=== PATIENT | female | born 1930 | race Hispanic/Latino ===

== ENCOUNTER 2019-11-07 17:14 | Inpatient (IN) | payer MEDICARE ==
[~2019-11-07] VITALS: Ht 147.3 cm; Wt 75.2 kg
[~2019-11-07 17:14] MED LIST: ETOMIDATE 2 MG/ML 10 ML VIAL IVP ONE
[2019-11-07 17:58] LABS: APPEARANCE,URINE Clear (CLEAR); BILIRUBIN,URINE Negative (NEGATIVE); COLOR,URINE Yellow (YELLOW); GLUCOSE, URINE (UA) Negative (NEGATIVE); KETONES,URINE Negative (NEGATIVE); LEUKOCYTE ESTERASE ,URINE Small (NEGATIVE); NITRATE,URINE Negative (NEGATIVE); OCCULT BLOOD,URINE Negative (NEGATIVE); PROTEIN,URINE POS 1+ mg/dL (NEGATIVE)
[2019-11-07 18:15] LABS: BASOPHILS % (AUTO) 0.3 % (0.0-5.0); EOSINOPHILS % (AUTO) 0.3 % (0.0-8.0); HEMATOCRIT 27.1 % (36-48); LYMPHOCYTES % (AUTO) 3.4 % (21.0-51.0); MEAN CORPUSCULAR HEMOGLOBIN 24.9 pg (27.0-33.0); MEAN CORPUSCULAR HGB CONC 29.9 g/dL (32.0-36.0); MEAN CORPUSCULAR VOLUME 83.4 fL (79-99); MONOCYTES % (AUTO) 4.9 % (3.0-13.0); NEUTROPHILS % (AUTO) 89.6 % (40.0-77.0); PLATELET COUNT (AUTO) 493 K/uL (130-400); RED BLOOD CELL COUNT(AUTO) 3.25 MIL/uL (4.00-5.50); RED CELL DISTRIBUTION WIDTH 15.4 % (11.0-15.5); WHITE BLOOD COUNT (AUTO) 27.7 K/uL (4.8-10.8)
[2019-11-07 18:30] LABS: CARBON DIOXIDE 29 mmol/L (21-32); CHLORIDE 100 mmol/L (101-111); GLOMERULAR FILTR. RATE CALC 56 mL/min (>60); GLUCOSE,RANDOM 181 mg/dL (70-105); POTASSIUM 4.3 mmol/L (3.5-5.1); SODIUM SERUM 137 mmol/L (136-145); UREA NITROGEN, BLOOD 14 mg/dL (7-18)
[2019-11-07] MEDS ORDERED: ZOSYN 3.375GM+NS 50ML 50 ML IV ONE (18:30)
[2019-11-07 18:34] LABS: BACTERIA,URINE Moderate /HPF (None Seen); MUCUS,URINE Moderate LPF (None Seen); RBC,URINE 0-1 /HPF (0-1); SQUAMOUS EPITHELIAL CELL,UR 0-2 /HPF (0-2)
[2019-11-07 18:41] LABS: ALANINE AMINOTRANSFERASE 15 U/L (12-78); ALBUMIN 2.6 g/dL (3.5-5.0); ASPARTATE AMINOTRANSFERASE 18 U/L (10-37); BILIRUBIN,TOTAL 0.2 mg/dL (0.2-1.0); CREATINE KINASE, TOTAL 47 U/L (21-232); MYOGLOBIN 35 ng/mL (10-92); TOTAL PROTEIN, SERUM 7.6 g/dL (6.0-8.3); TROPONIN I < 0.04 ng/mL (0.00-0.06)
[2019-11-07 18:48] LABS: INR 1.05 (0.85-1.15); PARTIAL THROMBOPLASTIN TIME 25.7 SEC (26.3-35.5)
[2019-11-07] MEDS ORDERED: LACTULOSE 20 GM/30 ML UDCUP PO PRN (20:00)
[2019-11-07] MEDS: CEFTRIAXONE SODIUM 1 GM IV SCH (20:00)
[2019-11-07] MEDS ORDERED: ONDANSETRON HCL 4 MG/2 ML VIAL IV PRN (20:00)
[2019-11-07] MEDS ORDERED: HYDRALAZINE HCL 20 MG/ML VIAL IV PRN (20:00)
[2019-11-07] MEDS ORDERED: FAMOTIDINE 20MG TAB 20 MG TAB ONE (20:58)
[2019-11-07] MEDS ORDERED: CEFTRIAXONE SODIUM 1 GM ONE (20:58)
[2019-11-07] MEDS ORDERED: SODIUM CHLORIDE 0.9% 50 ML IV ONE (20:59)
--- NOTE | 2019-11-07 22:30 | NUR ---
RT AWARE OF ENDING RESPIRATORY CX COLLECTION PT FAILED TO EXPECTORATE INDUCTION IS NEEDED
[2019-11-07 22:50] VITALS: BP 150/74
--- NOTE | 2019-11-07 22:58 | NUR ---
PT STATES [place] HER [place]ENT [place] [facility] [place] [facility] TOLD NOT TO TAKE ANY OF HER HOME MEDICATIONS AND SINCE, SHE HAS NOT TAKEN ANY PIECE DYE WORKER AJ AWARE
[2019-11-07] MEDS: AZITHROMYCIN 500MG+NS 250ML 250 ML IV SCH (23:00)
[2019-11-07] MEDS ORDERED: SODIUM CHLORIDE 3% FOR INHALATION 4 ML/AMP VIAL.NEB IH ONE (23:03)
[2019-11-07] MEDS: IPRATROPIUM/ALBUTEROL SULFATE 3 ML SOLUTION IH SCH (23:43)
[2019-11-08] VITALS: BP 147/57
[2019-11-08] MEDS: AZITHROMYCIN 500MG+NS 250ML 250 ML IV SCH (00:30)
[2019-11-08] MEDS ORDERED: SODIUM CHLORIDE 3% FOR INHALATION 4 ML/AMP VIAL.NEB IH ONE (03:03)
[2019-11-08 04:00] VITALS: BP 145/76
[2019-11-08 05:30] LABS: BASOPHILS % (AUTO) 0.3 % (0.0-5.0); EOSINOPHILS % (AUTO) 0.9 % (0.0-8.0); HEMATOCRIT 23.3 % (36-48); LYMPHOCYTES % (AUTO) 4.1 % (21.0-51.0); MEAN CORPUSCULAR HEMOGLOBIN 25.7 pg (27.0-33.0); MEAN CORPUSCULAR HGB CONC 30.9 g/dL (32.0-36.0); MEAN CORPUSCULAR VOLUME 83.2 fL (79-99); MONOCYTES % (AUTO) 6.7 % (3.0-13.0); NEUTROPHILS % (AUTO) 86.6 % (40.0-77.0); PLATELET COUNT (AUTO) 473 K/uL (130-400); RED CELL DISTRIBUTION WIDTH 15.7 % (11.0-15.5); WHITE BLOOD COUNT (AUTO) 20.8 K/uL (4.8-10.8)
[2019-11-08 05:45] LABS: POTASSIUM 3.9 mmol/L (3.5-5.1)
[2019-11-08] MEDS: IPRATROPIUM/ALBUTEROL SULFATE 3 ML SOLUTION IH SCH ×4 (06:33→23:16)
[2019-11-08 07:23] VITALS: BP 124/65
[2019-11-08] MEDS ORDERED: VANCOMYCIN 1GM+NS 250ML 250 ML IV SCH (08:45)
[2019-11-08] MEDS ORDERED: VANCOMYCIN PROTOCOL PER PHARMACY IV PRN (08:45)
[2019-11-08] MEDS: FAMOTIDINE 20MG TAB 20 MG TAB PO SCH (08:45)
[2019-11-08] MEDS: VANCOMYCIN 1GM+NS 250ML 250 ML IV SCH (08:52)
[2019-11-08] MEDS: ENOXAPARIN SODIUM 40 MG/0.4 ML SYRINGE SQ SCH (08:52)
[2019-11-08 10:47] VITALS: BP 141/63
[2019-11-08 16:02] VITALS: BP 136/60
--- NOTE | 2019-11-08 17:27 | NUR ---
INITIAL SW met with patient. Patient states she lives alone. Emergency contacts are sons: Gerg Jamison, and Robbie Jamison, . No home services or DME. Patient is independent in completing ADL's and drives. PCP is Dr. Aamrilys Wu. Pharmacy is [facility] located in [place]. DCP is home. Addendum: 11/08/19 at 1729 by ALONDRA MANLEY SS Amended: Links added.
[2019-11-08] MEDS: ACETAMINOPHEN 325 MG TAB PO PRN (17:33)
[2019-11-08 20:00] VITALS: BP 126/59
--- NOTE | 2019-11-08 21:30 | NUR ---
PER ARCHIVIST ECONOMIC HISTORY, ONLY GIVE 1 UNIT OF PRBC AND RECHECK CBC IN AM
[2019-11-08] MEDS: CEFTRIAXONE SODIUM 1 GM IV SCH (21:43)
[2019-11-08] MEDS ORDERED: ALPRAZOLAM 0.25 MG TABLET ONE (21:45)
[2019-11-08] MEDS: ALPRAZOLAM 0.25 MG TABLET PO PRN (21:46)
[2019-11-09] VITALS: BP 153/72
[2019-11-09] MEDS: ACETAMINOPHEN 325 MG TAB PO PRN ×2 (03:19→12:15)
[2019-11-09 04:00] VITALS: BP 139/75
[2019-11-09 06:08] LABS: BASOPHILS % (AUTO) 0.4 % (0.0-5.0); LYMPHOCYTES % (AUTO) 3.1 % (21.0-51.0); MEAN CORPUSCULAR HEMOGLOBIN 25.7 pg (27.0-33.0); MEAN CORPUSCULAR HGB CONC 30.7 g/dL (32.0-36.0); MEAN CORPUSCULAR VOLUME 83.8 fL (79-99); MONOCYTES % (AUTO) 5.8 % (3.0-13.0); NEUTROPHILS % (AUTO) 87.3 % (40.0-77.0); PLATELET COUNT (AUTO) 473 K/uL (130-400); RED BLOOD CELL COUNT(AUTO) 3.34 MIL/uL (4.00-5.50); RED CELL DISTRIBUTION WIDTH 15.4 % (11.0-15.5); WHITE BLOOD COUNT (AUTO) 25.6 K/uL (4.8-10.8)
--- NOTE | 2019-11-09 06:26 | NUR ---
CALLED SON ORION SINGH. TO [phone] SAME NUMBER HE HAD ASKED TO BE CALLED TO STATE HEMOGLOBIN AND HEMATOCRIT RESULTS BUT HE DID NOT ANSWER THE PHONE
[2019-11-09 06:36] LABS: CREATININE 0.8 mg/dL (0.5-1.5); POTASSIUM 3.4 mmol/L (3.5-5.1)
[2019-11-09] MEDS: IPRATROPIUM/ALBUTEROL SULFATE 3 ML SOLUTION IH SCH ×4 (07:17→23:06)
[2019-11-09 08:08] VITALS: BP 143/73
[2019-11-09] MEDS: FAMOTIDINE 20MG TAB 20 MG TAB PO SCH (08:21)
[2019-11-09] MEDS: ALPRAZOLAM 0.25 MG TABLET PO PRN ×2 (08:21→18:53)
[2019-11-09] MEDS: ENOXAPARIN SODIUM 40 MG/0.4 ML SYRINGE SQ SCH (08:22)
[2019-11-09] MEDS: VANCOMYCIN 1GM+NS 250ML 250 ML IV SCH (08:22)
[2019-11-09 12:22] VITALS: BP 140/69
[2019-11-09] MEDS: BISMUTH SUBSALICYLATE 525 MG/15 ML ML PO PRN (14:34)
[2019-11-09 16:05] VITALS: BP 133/72
[2019-11-09] MEDS ORDERED: KETOROLAC TROMETHAMINE 15MG/ML IM PRN (17:15)
[2019-11-09] MEDS: KETOROLAC TROMETHAMINE 15MG/ML IV PRN (17:48)
[2019-11-09 19:40] VITALS: BP 129/75
[2019-11-09] MEDS ORDERED: POTASSIUM CHLORIDE 20MEQ/100ML 100 ML IV PRN (20:45)
[2019-11-09] MEDS ORDERED: LIDOCAINE HCL-MPF 1% 2ML VIAL IV PRN (20:45)
[2019-11-09] MEDS ORDERED: POTASSIUM CHLORIDE 10% ELIXIR 20 MEQ/15 ML UDCUP PO PRN (20:45)
[2019-11-09] MEDS: AZITHROMYCIN 500MG+NS 250ML 250 ML IV SCH (22:19)
[2019-11-09] MEDS: CEFTRIAXONE SODIUM 1 GM IV SCH (22:19)
[2019-11-10] VITALS (8 sets, daily range): BP systolic 103–136; BP diastolic 57–87
[2019-11-10] MEDS: ALPRAZOLAM 0.25 MG TABLET PO PRN (02:15)
--- NOTE | 2019-11-10 02:25 | NUR ---
EPISODE OF ANXIETY PT PRESSED CALL LIGHT AND FOUND SITTING AT THE EDGE OF THE BED HYPERVENTILATING. PT STATES, " I JUST WOKE UP AND I HAVE ANXIETY. I FEEL THE SAME I DID YESTERDAY." VS DONE AT THIS TIME. 180/87, O2 SAT 88%, HR 130. ANTI ANXIETY PRN MEDICATION GIVEN AT THIS TIME. PT EDUCATED TO TAKE DEEP BREATHS THROUGH NARES AND EXHALE.
--- NOTE | 2019-11-10 02:35 | NUR ---
ANXIETY REEVALUATED VS AT THIS TIME: BP 149/69, HR 115, O2 SAT 96%. PT STATES, " I FEEL A LITTLE BETTER, BUT I STILL FEEL ANXIETY." PT IS NOW ABLE TO TOLERATE LAYING IN BED WITH HOB AT 90 DEGREE ANGLE.
[2019-11-10] MEDS ORDERED: DIPHENHYDRAMINE HCL 25 MG CAPSULE ONE (03:21)
[2019-11-10] MEDS ORDERED: DIPHENHYDRAMINE HCL 25 MG CAPSULE PO ONE (03:30)
[2019-11-10] MEDS ORDERED: FUROSEMIDE 10 MG/ML 2ML VIAL ONE (03:41)
[2019-11-10] MEDS ORDERED: FUROSEMIDE 10 MG/ML 2ML VIAL IV ONE (03:45)
[2019-11-10 03:56] LABS: ABG HCO3 21.5 mmol/L (21.0-28.0); ABG PCO2 33 mmHg (32-45)
[2019-11-10 04:16] LABS: BASOPHILS % (AUTO) 0.4 % (0.0-5.0); EOSINOPHILS % (AUTO) 0.6 % (0.0-8.0); HEMATOCRIT 32.4 % (36-48); LYMPHOCYTES % (AUTO) 2.9 % (21.0-51.0); MEAN CORPUSCULAR HEMOGLOBIN 25.8 pg (27.0-33.0); MEAN CORPUSCULAR HGB CONC 30.9 g/dL (32.0-36.0); MEAN CORPUSCULAR VOLUME 83.7 fL (79-99); MONOCYTES % (AUTO) 4.7 % (3.0-13.0); NEUTROPHILS % (AUTO) 88.6 % (40.0-77.0); NUCLEATED RED BLOOD CELLS 0.1 % (0.0-0.19); PLATELET COUNT (AUTO) 650 K/uL (130-400); RED BLOOD CELL COUNT(AUTO) 3.87 MIL/uL (4.00-5.50); RED CELL DISTRIBUTION WIDTH 15.9 % (11.0-15.5)
[2019-11-10 04:18] LABS: ALBUMIN 2.1 g/dL (3.5-5.0); BILIRUBIN,TOTAL 0.4 mg/dL (0.2-1.0); CREATININE 0.9 mg/dL (0.5-1.5); POTASSIUM 3.7 mmol/L (3.5-5.1)
[2019-11-10 04:21] LABS: WHITE BLOOD COUNT (AUTO) 37.1 K/uL (4.8-10.8)
[2019-11-10 04:50] LABS: BAND NEUTROPHILS % (MANUAL) 2 % (0-2); LYMPHOCYTES % (MANUAL) 3 % (22-44); MONOCYTES % (MANUAL) 2 % (2-9); SEGMENTED NEUTROPHILS % 93 % (40-70)
[2019-11-10 04:51] LABS: MAN.DIFF COMMENT-IMPRESSION MANUAL DIFFERENTIAL
[2019-11-10 04:52] LABS: PLATELET MORPHOLOGY COMMENT MARKED INCREASE
[2019-11-10] MEDS ORDERED: IOHEXOL-350 75 ML VIAL IV ONE (05:13)
[2019-11-10] MEDS: IPRATROPIUM/ALBUTEROL SULFATE 3 ML SOLUTION IH SCH ×4 (06:32→23:31)
--- NOTE | 2019-11-10 08:50 | NUR ---
Notified Dr. Andres of consultation.
[2019-11-10] MEDS: ENOXAPARIN SODIUM 40 MG/0.4 ML SYRINGE SQ SCH (09:00)
[2019-11-10] MEDS: FAMOTIDINE 20MG TAB 20 MG TAB PO SCH (09:00)
[2019-11-10] MEDS: VANCOMYCIN 1GM+NS 250ML 250 ML IV SCH (10:02)
[2019-11-10 10:16] LABS: INR 1.06 (0.85-1.15); PROTHROMBIN TIME 11.1 SEC (9.6-11.6)
[2019-11-10] MEDS ORDERED: LIDOCAINE HCL MPF 1% 5ML VIAL ONE (11:04)
[2019-11-10] MEDS ORDERED: LIDOCAINE HCL 1% 20 ML VIAL INJ SCH (11:15)
--- NOTE | 2019-11-10 11:15 | NUR ---
1115 R lung thoracentesis performed at bedside by Dr. Andres; consent obtained, timeout in room, pt. tolerated procedure well. 1 L of brown, clear fluid obtained from thora- specimens of fluid sent for labs as ordered.
[2019-11-10] MEDS ORDERED: MEROPENEM 1 GM VIAL IVP SCH (12:30)
[2019-11-10 12:52] LABS: APPEARANCE BODY FLUID CLOUDY (CLEAR); SPECIMENTYPE,BODY FLUID PLEURAL
[2019-11-10 12:53] LABS: COLOR,BODY FLUID LT YELLOW (LT YELLOW); TOTAL VOLUME,BODY FLUID 25 mL
[2019-11-10 12:59] LABS: BODY FLUID RBC 2800 /cu. mm.; BODY FLUID WBC 4565 /cu. mm.
[2019-11-10 13:01] LABS: BF EOSINOPHIL 1 %; BF LYMPHOCYTE 4 %; BF MESOTHELIAL 8 %; BF MONOCYTE 2 %
--- NOTE | 2019-11-10 14:15 | NUR ---
Report endorsed to CHANO Madera from [facility]; transported pt. via bed to room 229. Pt. states she feels better after thoracentesis; 02 sat on RA 96%, no c/o pain, resp even and unlabored at rest.
[2019-11-11] MEDS: MEROPENEM 1 GM VIAL IVP SCH ×3 (02:15→22:12)
[2019-11-11 04:01] VITALS: BP 107/62
[2019-11-11 05:17] LABS: BASOPHILS % (AUTO) 0.3 % (0.0-5.0); EOSINOPHILS % (AUTO) 0.6 % (0.0-8.0); HEMATOCRIT 28.1 % (36-48); LYMPHOCYTES % (AUTO) 2.8 % (21.0-51.0); MEAN CORPUSCULAR HEMOGLOBIN 26.6 pg (27.0-33.0); MEAN CORPUSCULAR HGB CONC 31.7 g/dL (32.0-36.0); MEAN CORPUSCULAR VOLUME 83.9 fL (79-99); MONOCYTES % (AUTO) 5.7 % (3.0-13.0); PLATELET COUNT (AUTO) 499 K/uL (130-400); RED BLOOD CELL COUNT(AUTO) 3.35 MIL/uL (4.00-5.50); RED CELL DISTRIBUTION WIDTH 16.3 % (11.0-15.5); WHITE BLOOD COUNT (AUTO) 27.1 K/uL (4.8-10.8)
[2019-11-11 05:37] LABS: ALBUMIN 1.7 g/dL (3.5-5.0); BILIRUBIN,TOTAL 0.3 mg/dL (0.2-1.0); POTASSIUM 3.4 mmol/L (3.5-5.1); TOTAL PROTEIN, SERUM 5.9 g/dL (6.0-8.3)
[2019-11-11] MEDS: IPRATROPIUM/ALBUTEROL SULFATE 3 ML SOLUTION IH SCH ×4 (07:08→23:21)
[2019-11-11 07:30] VITALS: BP 107/61
[2019-11-11] MEDS: VANCOMYCIN 1GM+NS 250ML 250 ML IV SCH (09:13)
[2019-11-11] MEDS: ENOXAPARIN SODIUM 40 MG/0.4 ML SYRINGE SQ SCH (09:14)
[2019-11-11] MEDS: FAMOTIDINE 20MG TAB 20 MG TAB PO SCH (09:14)
[2019-11-11] MEDS: POTASSIUM CHLORIDE 20 MEQ ERTAB PO PRN (09:15)
[2019-11-11] MEDS: ALPRAZOLAM 0.25 MG TABLET PO PRN ×2 (11:23→22:16)
[2019-11-11 11:30] VITALS: BP 105/71
[2019-11-11 15:30] VITALS: BP 123/72
[2019-11-11 20:11] VITALS: BP 142/81
[2019-11-12 00:25] VITALS: BP 137/68
[2019-11-12 04:53] LABS: HEMATOCRIT 29.2 % (36-48); MEAN CORPUSCULAR HEMOGLOBIN 26.1 pg (27.0-33.0); MEAN CORPUSCULAR HGB CONC 31.2 g/dL (32.0-36.0); MEAN CORPUSCULAR VOLUME 83.7 fL (79-99); PLATELET COUNT (AUTO) 508 K/uL (130-400); RED BLOOD CELL COUNT(AUTO) 3.49 MIL/uL (4.00-5.50); WHITE BLOOD COUNT (AUTO) 25.4 K/uL (4.8-10.8)
[2019-11-12 05:11] LABS: ALBUMIN 1.6 g/dL (3.5-5.0); BILIRUBIN,TOTAL 0.4 mg/dL (0.2-1.0); CREATININE 0.9 mg/dL (0.5-1.5); POTASSIUM 3.7 mmol/L (3.5-5.1); TOTAL PROTEIN, SERUM 5.9 g/dL (6.0-8.3)
[2019-11-12 05:20] VITALS: BP 126/70
[2019-11-12 06:31] LABS: BAND NEUTROPHILS % (MANUAL) 4 % (0-2); BASOPHILS % (MANUAL) 5 % (0-2); LYMPHOCYTES % (MANUAL) 11 % (22-44); MAN.DIFF COMMENT-IMPRESSION MANUAL DIFFERENTIAL; MONOCYTES % (MANUAL) 4 % (2-9); PLATELET MORPHOLOGY COMMENT INCREASED; SEGMENTED NEUTROPHILS % 76 % (40-70)
[2019-11-12] MEDS: IPRATROPIUM/ALBUTEROL SULFATE 3 ML SOLUTION IH SCH ×4 (06:58→23:14)
[2019-11-12] MEDS: MEROPENEM 1 GM VIAL IVP SCH ×2 (07:37→21:42)
[2019-11-12] MEDS: VANCOMYCIN 1GM+NS 250ML 250 ML IV SCH (07:38)
[2019-11-12] MEDS: FAMOTIDINE 20MG TAB 20 MG TAB PO SCH (07:38)
[2019-11-12] MEDS: ENOXAPARIN SODIUM 40 MG/0.4 ML SYRINGE SQ SCH (07:38)
--- NOTE | 2019-11-12 08:00 | NUR ---
ASSESSMENT AAOX3 DENIES CP DENIES SOB DENIES NV NO COMPLAINTS, SITTING UP IN BED, AM MEDS GIVEN. EATING BREAKFAST, CALL LIGHT WITHIN REACH.
[2019-11-12 08:12] VITALS: BP 125/61
--- NOTE | 2019-11-12 09:35 | NUR ---
HR VIA TELE PARTRIDGE FARMER AFIB 120S PATIENT STATES SHE FEELS HER HEART RACING SLIGHTLY, DENIES CHEST PAIN. BREATHING PATTERN IS EVEN AND UNLABORED. 12 LEAD EKG DONE, SHOWED SINUS TACHYCARDIA 110S. NOTIFIED DR CASTRO, ORDERS RECEIVED FOR METOPROLOL PO AND IV, CARRIED OUT. CONTINUING TO MONITOR.
[2019-11-12] MEDS ORDERED: METOPROLOL TARTRATE 25 MG TAB PO SCH (09:45)
[2019-11-12] MEDS ORDERED: METOPROLOL TARTRATE 1 MG/ML 5ML VIAL IV SCH (09:45)
--- NOTE | 2019-11-12 09:45 | NUR ---
HR VIA TELE SR 90S PT AAOX3 DENIES CP DENIES SOB.
--- NOTE | 2019-11-12 11:19 | NUR ---
GYNE CONSULT RE: SUSPECT PELVIC MASS, PLACED WITH DR SHAFER OFFICE, SPOKE WITH JENNIFER.
[2019-11-12] MEDS: ALPRAZOLAM 0.25 MG TABLET PO PRN ×2 (11:26→16:29)
[2019-11-12 12:07] VITALS: BP 117/63
[2019-11-12] MEDS: METOPROLOL TARTRATE 25 MG TAB PO SCH ×2 (13:07→21:42)
[2019-11-12] MEDS ORDERED: VANCOMYCIN PROTOCOL PER PHARMACY IV SCH (13:30)
[2019-11-12] MEDS ORDERED: COMPOUND IV REFRIGERATED 1 EACH IVSOLN MISC PRN (13:30)
--- NOTE | 2019-11-12 14:22 | NUR ---
DR Rosalino SHAFER CALLED BACK ORDERS RECEIVED, STATES HE WILL SEE PATIENT THIS EVENING
[2019-11-12] MEDS: VANCOMYCIN 1.25 GM in SODIUM CHLORIDE 0.9% 250 ML IV SCH (14:26)
--- NOTE | 2019-11-12 14:50 | NUR ---
DR POMPA ROUNDED ORDERS RECEIVED, MERREM RESTARTED.
[2019-11-12 19:42] VITALS: BP 128/60
--- NOTE | 2019-11-12 20:00 | NUR ---
Pt Sat 91% on 4LNC. Placed pt on bipap 10/,14,40%. Pt only tolerated 25 min on bipap. Placed pt back on 4LNC. Addendum: 11/12/19 at 2005 by DEMARCUS LOREDO RT Amended: Links added.
[2019-11-12] MEDS ORDERED: MEROPENEM 1 GM VIAL IVP SCH (21:00)
[2019-11-12] MEDS ORDERED: DIPHENHYDRAMINE HCL 25 MG CAPSULE ONE (21:56)
--- NOTE | 2019-11-13 | NUR ---
PT ANXIOUS AT TIMES. MINIMALLY CONFUSED. SOB EPISODES NOTED, NASAL CANNULA INCREASED TO 4LPM.
[2019-11-13 00:13] VITALS: BP 127/69
[2019-11-13 04:23] LABS: BASOPHILS % (AUTO) 0.3 % (0.0-5.0); EOSINOPHILS % (AUTO) 0.5 % (0.0-8.0); HEMATOCRIT 31.6 % (36-48); LYMPHOCYTES % (AUTO) 2.5 % (21.0-51.0); MEAN CORPUSCULAR HEMOGLOBIN 25.7 pg (27.0-33.0); MEAN CORPUSCULAR HGB CONC 30.4 g/dL (32.0-36.0); MEAN CORPUSCULAR VOLUME 84.7 fL (79-99); MONOCYTES % (AUTO) 5.7 % (3.0-13.0); NEUTROPHILS % (AUTO) 89.8 % (40.0-77.0); PLATELET COUNT (AUTO) 501 K/uL (130-400); RED BLOOD CELL COUNT(AUTO) 3.73 MIL/uL (4.00-5.50); RED CELL DISTRIBUTION WIDTH 17.2 % (11.0-15.5)
[2019-11-13 04:49] VITALS: BP 102/82
[2019-11-13 04:52] LABS: CREATININE 0.9 mg/dL (0.5-1.5); PHOSPHORUS 2.7 mg/dL (2.5-4.9)
[2019-11-13 04:53] LABS: BAND NEUTROPHILS % (MANUAL) 4 % (0-2); EOSINOPHILS % (MANUAL) 1 % (1-6); LYMPHOCYTES % (MANUAL) 1 % (22-44); MAN.DIFF COMMENT-IMPRESSION MANUAL DIFFERENTIAL; MONOCYTES % (MANUAL) 5 % (2-9); SEGMENTED NEUTROPHILS % 89 % (40-70)
--- NOTE | 2019-11-13 05:10 | NUR ---
WBC 30. NOTIFIED HOSPITALIST FIELD SERVICES ANALYST. KYUNG KRAMER. NO NEW ORDERS. ID IN CASE.
[2019-11-13] MEDS: IPRATROPIUM/ALBUTEROL SULFATE 3 ML SOLUTION IH SCH ×4 (06:38→23:30)
[2019-11-13 07:53] VITALS: BP 118/65
[2019-11-13] MEDS: MEROPENEM 1 GM VIAL IVP SCH ×2 (08:26→22:04)
[2019-11-13] MEDS: FAMOTIDINE 20MG TAB 20 MG TAB PO SCH (08:26)
[2019-11-13] MEDS: METOPROLOL TARTRATE 25 MG TAB PO SCH ×3 (08:26→22:03)
--- NOTE | 2019-11-13 08:45 | NUR ---
ASSESSMENT PT IS AAOX3 DENIES CP DENIES SOB DENIES NV AT THIS TIME, SITTING UPRIGHT IN BED, BREATHING PATTERN IS EVEN AND UNLABORED. PENDING FAMILY TO COME TO DISCUSS WITH PATIENT REGARDING POSSIBLE CT CHEST LUNG BIOPSY. CALL LIGHT WITHIN REACH.
--- NOTE | 2019-11-13 09:00 | NUR ---
SPOKE WITH SON LUCIA REGARDING LUNG BIOPSY STATES HE WILL SPEAK WITH HIS OTHER BROTHER AND DECIDE ON WHETHER TO PROCEED OR NOT, STATES THEY MIGHT WANT TO WAIT TO DO BIOPSY ONCE MOTHER GETS STRONGER AND BLOOD COUNTS ARE BETTER.
[2019-11-13] MEDS ORDERED: DIATR MEGLU/DIATRIZOATE SODIUM 30 ML BOTTLE ONE (09:45)
[2019-11-13] MEDS: ENOXAPARIN SODIUM 40 MG/0.4 ML SYRINGE SQ SCH (09:48)
--- NOTE | 2019-11-13 10:00 | NUR ---
PREP FOR CT ABD PELVIS STARTED
[2019-11-13 11:27] VITALS: BP 113/66
--- NOTE | 2019-11-13 12:00 | NUR ---
UP TO CHAIR FAMILY AT BEDSIDE, PT DENIES CP DENIES SOB
[2019-11-13] MEDS ORDERED: IOHEXOL-350 75 ML VIAL IV ONE (14:20)
[2019-11-13] MEDS: VANCOMYCIN 1.25 GM in SODIUM CHLORIDE 0.9% 250 ML IV SCH (14:57)
--- NOTE | 2019-11-13 15:03 | NUR ---
MIP BRIAN met with patient's son, Greg Jamison regarding decision to have biopsy completed on patient. Greg informed BRIAN that his brother, Robbie Jamison, had spoke to MD about waiting to have biopsy completed until patient was more stable. As per Greg, his brother feels that patient is still too weak to have biopsy done. Greg also informed BRIAN that his brother, Robbie had also informed MD that he was asking his mother in law, who is a doctor at [facility] for some recommendations regarding plan of care for patient. BRIAN shared above information with patient's nurse, Lobito, who stated that MD had already spoken to family regarding same issue. BRIAN will continue to follow up with family as needed.
--- NOTE | 2019-11-13 15:31 | NUR ---
1514 placed BPCI Letter in patient's room. Patient was out for procedure at this moment.
[2019-11-13] MEDS: ALPRAZOLAM 0.25 MG TABLET PO PRN (15:46)
--- NOTE | 2019-11-13 15:49 | NUR ---
RETURNED TO ROOM AWAKE AND ALERT, STATES SHE IS ANXIOUS. PRN ATIVAN PO GIVEN.
--- NOTE | 2019-11-13 16:15 | NUR ---
SHORTNESS OF BREATH / ANXIETY PATIENT IS AAOX3 BUT TACHYPNIC RR 30, O2 SAT 80S, PLACED ON NONREBREATHER, DR MARIN ROUNDED AND ASSESSED PATIENT, ORDERS RECEIVED AND CARRIED OUT.
[2019-11-13 16:20] VITALS: BP 172/95
[2019-11-13] MEDS ORDERED: FUROSEMIDE 10 MG/ML 2ML VIAL ONE (16:20)
[2019-11-13 16:28] LABS: ABG BASE EXCESS -3.2 mmol/L (-2.0-3.0); ABG HCO3 24.4 mmol/L (21.0-28.0); ABG OXYGEN SATURATION 95.3 % (95.0-99.0); ABG PCO2 54 mmHg (32-45)
--- NOTE | 2019-11-13 16:40 | NUR ---
STATUS PT IS RESTING IN BED, BREATHING PATTERN EVEN AND UNLABORED, RR 20-22. O2 SAT 96%, APPEARS ASLEEP. NO VISIBLE SIGNS OF DISTRESS NOTED, SON AT BEDSIDE.
[2019-11-13] MEDS ORDERED: ALBUTEROL SULFATE 0.083% 2.5 MG/3 ML INH IH SCH (17:15)
--- NOTE | 2019-11-13 18:00 | NUR ---
STATUS PATIENT IS AAOX3, O2 SAT 98% CURRENTLY ON 4LPM NC. FAMILY MEMBERS AT BEDSIDE. HOB UP AT 35 DEGREES. CALL LIGHT WITHIN REACH.
[2019-11-13 20:25] VITALS: BP 101/54
[2019-11-14] VITALS (7 sets, daily range): BP systolic 111–163; BP diastolic 55–79
[2019-11-14] MEDS: IPRATROPIUM/ALBUTEROL SULFATE 3 ML SOLUTION IH SCH ×4 (06:37→23:28)
[2019-11-14] MEDS: FAMOTIDINE 20MG TAB 20 MG TAB PO SCH (09:44)
[2019-11-14] MEDS: METOPROLOL TARTRATE 25 MG TAB PO SCH ×3 (09:44→21:49)
[2019-11-14] MEDS: ENOXAPARIN SODIUM 40 MG/0.4 ML SYRINGE SQ SCH (09:48)
[2019-11-14] MEDS: MEROPENEM 1 GM VIAL IVP SCH ×2 (09:48→21:49)
--- NOTE | 2019-11-14 09:53 | NUR ---
DR. MARIN IN ROOM SPEAKING WITH PT. RE:PLAN OF CARE. QUESTIONS ANSWERED BY DR. MARIN.
[2019-11-14] MEDS: ALPRAZOLAM 0.25 MG TABLET PO PRN (11:26)
[2019-11-14] MEDS: FUROSEMIDE 10 MG/ML 2ML VIAL IV SCH ×2 (11:26→21:49)
[2019-11-14] MEDS: VANCOMYCIN 1.25 GM in SODIUM CHLORIDE 0.9% 250 ML IV SCH (13:39)
[2019-11-14] MEDS: KETOROLAC TROMETHAMINE 15MG/ML IV PRN ×2 (13:40→20:03)
--- NOTE | 2019-11-14 15:39 | NUR ---
RD NOTIFICATION DIET: REGULAR. PO INTAKE <25% AND HAS POOR APPETITE. PT IS REQUESTING NUTRITIONAL SUPPLEMENTS WITH LOW SUGAR. LABS REVIEWED (WBC 30, ALB 1.6, BNP 635, D-DIMER 4277). MEDS REVIEWED. SKIN IS INTACT. PT STATED FOOD IS TOO SPICY, SHE CAN NOT EAT COMFORTABLY. RD RECOMMENDS TO ADD GI SOFT/BLAND ADD GLUCERNA BID ADD 30ML PROMOD BID TO DIET ORDER MONITOR LABS, BM, AND TOLERANCE TO DIET Addendum: 11/14/19 at [address] Amended: Links added.
[2019-11-14] MEDS: ACETAMINOPHEN 325 MG TAB PO PRN (16:16)
--- NOTE | 2019-11-14 18:38 | NUR ---
DR. HERNANDEZ, CRAFT DEMONSTRATOR, CALLED BY DISK OPERATOR. DR. CASTRO SPEAKING WITH A NURSE VIA TELEPHONE FOR DR. HERNANDEZ, "DR. HERNNADEZ PERFORMING A PROCEDURE RIGHT NOW." CALL BACK NUMBER PROVIDED FOR DR. HERNANDEZ BY DR. CASTRO TO DISCUSS CONSULT.
[2019-11-14] MEDS: BISMUTH SUBSALICYLATE 525 MG/15 ML ML PO PRN (18:49)
[2019-11-15] VITALS (11 sets, daily range): BP systolic 97–131; BP diastolic 57–73
[2019-11-15 04:15] LABS: BASOPHILS % (AUTO) 0.3 % (0.0-5.0); EOSINOPHILS % (AUTO) 0.7 % (0.0-8.0); HEMATOCRIT 32.8 % (36-48); MEAN CORPUSCULAR HEMOGLOBIN 25.5 pg (27.0-33.0); MEAN CORPUSCULAR HGB CONC 29.6 g/dL (32.0-36.0); MEAN CORPUSCULAR VOLUME 86.1 fL (79-99); MONOCYTES % (AUTO) 4.7 % (3.0-13.0); NEUTROPHILS % (AUTO) 89.7 % (40.0-77.0); PLATELET COUNT (AUTO) 558 K/uL (130-400); RED BLOOD CELL COUNT(AUTO) 3.81 MIL/uL (4.00-5.50)
[2019-11-15 04:18] LABS: WHITE BLOOD COUNT (AUTO) 38.4 K/uL (4.8-10.8)
[2019-11-15 04:27] LABS: CREATININE 0.9 mg/dL (0.5-1.5); POTASSIUM 4.3 mmol/L (3.5-5.1)
[2019-11-15 04:32] LABS: INR 1.02 (0.85-1.15); PARTIAL THROMBOPLASTIN TIME 33.3 SEC (26.3-35.5); PROTHROMBIN TIME 10.7 SEC (9.6-11.6)
[2019-11-15] MEDS: IPRATROPIUM/ALBUTEROL SULFATE 3 ML SOLUTION IH SCH ×3 (06:46→19:01)
[2019-11-15] MEDS: ENOXAPARIN SODIUM 40 MG/0.4 ML SYRINGE SQ SCH (08:06)
[2019-11-15] MEDS: METOPROLOL TARTRATE 25 MG TAB PO SCH ×3 (09:09→19:59)
[2019-11-15] MEDS: FAMOTIDINE 20MG TAB 20 MG TAB PO SCH (09:09)
[2019-11-15] MEDS: MEROPENEM 1 GM VIAL IVP SCH ×2 (09:10→20:00)
[2019-11-15] MEDS: FUROSEMIDE 10 MG/ML 2ML VIAL IV SCH ×2 (09:10→19:59)
--- NOTE | 2019-11-15 10:15 | NUR ---
PT NOTE: UPON ENTERING ROOM THIS AM PATIENT APPEARED FATIGUED AND STATED SHE JUST FINISHED GETTING A BED BATH WITH [facility] STAFF. PATIENT PRESENTS WITH A DECLINE IN TOLERANCE FOR PT TX OVER THE PAST FEW DAYS. THREE DAYS PRIOR PATIENT WAS PERFORMING TRANSITION STEPS TO CHAIR WITH MOD/MIN ASSISTX1 ON NASAL CANULA. DURING YESTERDAY'S TX SESSION PATIENT WAS ABLE TO STAND AND PERFORM TRANSITION STEPS TO HOB WITH HIGH FLOW O2. DURING TODAY'S TX SESSION PATIENT TOLERATED AROM AT BEDSIDE WITH FATIGUE NOTED AT END OF TX SESSION ON HIGH FLOW O2. WILL CONTINUE TO MONITOR PATIENTS TOLERANCE LEVEL AND PROGRESS PATIENT TOLERATED WITH PT TX. Addendum: 11/15/19 at 1044 by MAKENNA DOMINGUEZ PT Amended: Links added.
--- NOTE | 2019-11-15 10:48 | NUR ---
RECEIVED CALL FROM DR. HERNANDEZ. QUESTIONS ANSWERED AND INFORMED OF PENDING NEPHROSTOMY TUBE PLACE, VERBALIZED UNDERSTANDING. NO NEW ORDERS RECEIVED AT THIS TIME.
[2019-11-15] MEDS ORDERED: FENTANYL CITRATE PF 50 MCG/1 ML 2ML VIAL ONE (11:24)
[2019-11-15] MEDS ORDERED: MIDAZOLAM HCL 1 MG/ML 2ML VIAL ONE (11:24)
[2019-11-15] MEDS ORDERED: IODIXANOL 320 MG/ML 100 ML VIAL ONE (11:24)
[2019-11-15] MEDS ORDERED: LIDOCAINE HCL 1% MDV 50ML VIAL ONE (11:25)
--- NOTE | 2019-11-15 11:32 | NUR ---
TO FABRIC SOURCER VIA BED ACCOMPANIED BY Tito SORIANO RN AND Tito DANIELSON RN. NRB IN PLACE. PT. DENIES ANY C/O AT THIS TIME.
--- NOTE | 2019-11-15 12:50 | NUR ---
RETURNED TO ROOM VIA BED WITH NRB IN PLACE. NEPHROSTOMY TUBE IN PLACE, DALI D/I. PT. DENIES ANY C/O AT THIS TIME. CALLED R.T. TO CHANGE PT. BACK TO HIGH FLOW O2. CALL LIGHT WITHIN REACH, VERBALIZED ABILITY TO USE.
[2019-11-15] MEDS: VANCOMYCIN 1.25 GM in SODIUM CHLORIDE 0.9% 250 ML IV SCH (14:28)
[2019-11-15] MEDS: ALPRAZOLAM 0.25 MG TABLET PO PRN (19:59)
[2019-11-16] VITALS (7 sets, daily range): BP systolic 108–134; BP diastolic 57–77
[2019-11-16] MEDS: IPRATROPIUM/ALBUTEROL SULFATE 3 ML SOLUTION IH SCH ×4 (00:25→18:30)
[2019-11-16 04:14] LABS: ABG BASE EXCESS 9.7 mmol/L (-2.0-3.0); ABG HCO3 34.3 mmol/L (21.0-28.0); ABG PCO2 46 mmHg (32-45)
[2019-11-16 04:46] LABS: BASOPHILS % (AUTO) 0.3 % (0.0-5.0); EOSINOPHILS % (AUTO) 0.2 % (0.0-8.0); HEMATOCRIT 30.6 % (36-48); LYMPHOCYTES % (AUTO) 2.4 % (21.0-51.0); MEAN CORPUSCULAR HEMOGLOBIN 25.4 pg (27.0-33.0); MEAN CORPUSCULAR HGB CONC 30.1 g/dL (32.0-36.0); MEAN CORPUSCULAR VOLUME 84.5 fL (79-99); MONOCYTES % (AUTO) 4.7 % (3.0-13.0); NEUTROPHILS % (AUTO) 89.9 % (40.0-77.0); PLATELET COUNT (AUTO) 594 K/uL (130-400); RED BLOOD CELL COUNT(AUTO) 3.62 MIL/uL (4.00-5.50); RED CELL DISTRIBUTION WIDTH 17.2 % (11.0-15.5)
[2019-11-16 04:57] LABS: WHITE BLOOD COUNT (AUTO) 36.6 K/uL (4.8-10.8)
[2019-11-16 05:01] LABS: CREATININE 0.8 mg/dL (0.5-1.5); POTASSIUM 3.7 mmol/L (3.5-5.1)
--- NOTE | 2019-11-16 06:20 | NUR ---
AT THIS TIME, PT REFUSING DAILY WEIGHT BY STANDING.REQUESTING FOR IT TO BE DONE LATER IN THE DAY. HAVING SOB, EVEN THOUGH ON HIGH FLOW.
[2019-11-16] MEDS: ALPRAZOLAM 0.25 MG TABLET PO PRN (09:17)
[2019-11-16] MEDS: MEROPENEM 1 GM VIAL IVP SCH ×2 (09:17→21:41)
[2019-11-16] MEDS: ENOXAPARIN SODIUM 40 MG/0.4 ML SYRINGE SQ SCH (09:17)
[2019-11-16] MEDS: FAMOTIDINE 20MG TAB 20 MG TAB PO SCH (09:17)
[2019-11-16] MEDS: METOPROLOL TARTRATE 25 MG TAB PO SCH ×3 (09:17→21:00)
[2019-11-16] MEDS: FUROSEMIDE 10 MG/ML 2ML VIAL IV SCH ×2 (09:17→21:40)
[2019-11-16] MEDS ORDERED: BIOTENE 44.3 ML SOLUTION MM PRN (12:00)
--- NOTE | 2019-11-16 14:23 | NUR ---
RD FOLLOW UP PT REFUSING TO CONSUME SOLID FOODS DUE TO HAVING DISCOMFORT WITH SWALLOW. SHE IS REQUESTING GLUCERNA WITH ALL MEALS, RD PROVIDED FLUID RESTRICTION RECOMMENDATIONS TO PT AND HER SON. SON IS AWARE THAT PT CAN HAVE GLUCERNA HOWEVER, WATCH OTHER FLUIDS INTAKE THROUGHOUT THE DAY - THEY VERBALIZED UNDERSTANDING. CONSULT FINE PATCHER FOR SWALLOW OFFER GLUCERNA WITH ALL MEALS Addendum: 11/16/19 at [address] Amended: Links added.
[2019-11-16] MEDS: VANCOMYCIN 1.25 GM in SODIUM CHLORIDE 0.9% 250 ML IV SCH (14:36)
--- NOTE | 2019-11-16 21:00 | NUR ---
PT HAS HAD LOOSE STOOLS, GIVEN IMMODIUM X1 DOSE. SON STATES PT HAD ICE CREAM WHICH CAUSES THIS. PT REQUESTED FEMALES TO CHANGE BRIEF. REDNESS TO BOTTOM, AND VAGINAL AREA. INCREASED VOIDING DUE TO LASIX. CONSTANT BRIEF CHANGE. LARGE AMOUNTS OF BARRIER CREAM APPLIED.
[2019-11-16] MEDS ORDERED: LOPERAMIDE HCL 2 MG CAP PO ONE (23:13)
[2019-11-17] MEDS: IPRATROPIUM/ALBUTEROL SULFATE 3 ML SOLUTION IH SCH ×5 (00:28→23:56)
[2019-11-17 03:00] VITALS: BP 135/69
[2019-11-17 07:30] VITALS: BP 129/67
--- NOTE | 2019-11-17 07:50 | NUR ---
ASSESSMENT PT IS RESTING IN BED, WHEN AWOKEN SHE DENIES CP DENIES SOB WHILE AT REST. NO COUGHING AT THIS TIME. DENIES NV NO COMPLAINTS RESTING IN BED, CALL LIGHT WITHIN REACH. VISITOR AT BEDSIDE. PATIENT IS CURRENTLY ON HIGH FLOW O2 NASAL CANNULA.
[2019-11-17] MEDS: MEROPENEM 1 GM VIAL IVP SCH ×2 (07:54→20:35)
[2019-11-17] MEDS: FAMOTIDINE 20MG TAB 20 MG TAB PO SCH (07:54)
[2019-11-17] MEDS: METOPROLOL TARTRATE 25 MG TAB PO SCH ×3 (07:54→20:34)
[2019-11-17] MEDS: ENOXAPARIN SODIUM 40 MG/0.4 ML SYRINGE SQ SCH (07:55)
[2019-11-17] MEDS: FUROSEMIDE 10 MG/ML 2ML VIAL IV SCH ×2 (07:55→20:35)
[2019-11-17 11:30] VITALS: BP 114/68
[2019-11-17] MEDS: BISMUTH SUBSALICYLATE 525 MG/15 ML ML PO PRN (12:18)
[2019-11-17] MEDS: VANCOMYCIN 1.25 GM in SODIUM CHLORIDE 0.9% 250 ML IV SCH (13:34)
--- NOTE | 2019-11-17 13:40 | NUR ---
DR MARIN ROUNDED SAW PATIENT
[2019-11-17 15:30] VITALS: BP 122/64
[2019-11-17 19:00] VITALS: BP 134/68
[2019-11-17] MEDS: ACETAMINOPHEN 325 MG TAB PO PRN (20:34)
[2019-11-17] MEDS: ALPRAZOLAM 0.25 MG TABLET PO PRN (22:15)
[2019-11-17 23:00] VITALS: BP 115/66
[2019-11-18 03:00] VITALS: BP 130/68
[2019-11-18 04:59] LABS: BASOPHILS % (AUTO) 0.5 % (0.0-5.0); EOSINOPHILS % (AUTO) 0.7 % (0.0-8.0); HEMATOCRIT 33.7 % (36-48); LYMPHOCYTES % (AUTO) 2.9 % (21.0-51.0); MEAN CORPUSCULAR HEMOGLOBIN 25.2 pg (27.0-33.0); MEAN CORPUSCULAR HGB CONC 29.4 g/dL (32.0-36.0); MEAN CORPUSCULAR VOLUME 85.8 fL (79-99); MONOCYTES % (AUTO) 5.3 % (3.0-13.0); NEUTROPHILS % (AUTO) 87.8 % (40.0-77.0); PLATELET COUNT (AUTO) 655 K/uL (130-400); RED BLOOD CELL COUNT(AUTO) 3.93 MIL/uL (4.00-5.50); RED CELL DISTRIBUTION WIDTH 17.9 % (11.0-15.5)
[2019-11-18] MEDS: ACETAMINOPHEN 325 MG TAB PO PRN (05:06)
[2019-11-18 05:07] LABS: WHITE BLOOD COUNT (AUTO) 42.6 K/uL (4.8-10.8)
[2019-11-18 05:18] LABS: ALBUMIN 1.7 g/dL (3.5-5.0); BILIRUBIN,TOTAL 0.4 mg/dL (0.2-1.0); CREATININE 0.8 mg/dL (0.5-1.5); POTASSIUM 3.6 mmol/L (3.5-5.1); TOTAL PROTEIN, SERUM 6.6 g/dL (6.0-8.3)
[2019-11-18 05:48] LABS: BAND NEUTROPHILS % (MANUAL) 15 % (0-2); BASOPHILS % (MANUAL) 1 % (0-2); LYMPHOCYTES % (MANUAL) 4 % (22-44); MAN.DIFF COMMENT-IMPRESSION MANUAL DIFFERENTIAL; MONOCYTES % (MANUAL) 2 % (2-9); PLATELET MORPHOLOGY COMMENT INCREASED; SEGMENTED NEUTROPHILS % 78 % (40-70)
[2019-11-18] MEDS: FUROSEMIDE 10 MG/ML 2ML VIAL IV SCH ×2 (07:07→22:25)
[2019-11-18] MEDS: MEROPENEM 1 GM VIAL IVP SCH ×2 (07:07→22:25)
[2019-11-18] MEDS: METOPROLOL TARTRATE 25 MG TAB PO SCH ×3 (07:07→22:26)
[2019-11-18] MEDS: FAMOTIDINE 20MG TAB 20 MG TAB PO SCH (07:07)
[2019-11-18] MEDS: ENOXAPARIN SODIUM 40 MG/0.4 ML SYRINGE SQ SCH (07:10)
[2019-11-18] MEDS: IPRATROPIUM/ALBUTEROL SULFATE 3 ML SOLUTION IH SCH ×4 (07:19→23:12)
[2019-11-18 07:45] VITALS: BP 106/59
--- NOTE | 2019-11-18 07:45 | NUR ---
ASSESSMENT PT IS AAOX3 DENIES CP DENIES SOB DENIES NV NO COMPLAINTS AT THIS TIME. RESTING IN BED. CURRENTLY ON HIGHFLOW O2, COMPLETE BED BATH GIVEN WITH PERICARE RENDERED BY DAY SHIFT NURSE AIDE AT THIS TIME. CALL LIGHT WITHIN REACH.
[2019-11-18] MEDS: ALPRAZOLAM 0.25 MG TABLET PO PRN (09:08)
[2019-11-18 11:30] VITALS: BP 137/68
[2019-11-18 15:30] VITALS: BP 138/64
[2019-11-18] MEDS: VANCOMYCIN 1.25 GM in SODIUM CHLORIDE 0.9% 250 ML IV SCH (16:13)
--- NOTE | 2019-11-18 17:20 | NUR ---
STATUS PT RESTING IN BED, NO VISIBLE SIGNS OF DISTRESS NOTED, SON IS AT BEDSIDE.
[2019-11-18 20:22] VITALS: BP 144/73
[2019-11-18] MEDS: POTASSIUM CHLORIDE 20 MEQ ERTAB PO PRN (22:25)
[2019-11-19] VITALS (7 sets, daily range): BP systolic 121–151; BP diastolic 58–69
[2019-11-19 04:29] LABS: BASOPHILS % (AUTO) 0.6 % (0.0-5.0); EOSINOPHILS % (AUTO) 0.5 % (0.0-8.0); HEMATOCRIT 31.8 % (36-48); LYMPHOCYTES % (AUTO) 2.6 % (21.0-51.0); MEAN CORPUSCULAR HEMOGLOBIN 25.1 pg (27.0-33.0); MEAN CORPUSCULAR HGB CONC 29.6 g/dL (32.0-36.0); MEAN CORPUSCULAR VOLUME 84.8 fL (79-99); MONOCYTES % (AUTO) 5.1 % (3.0-13.0); NEUTROPHILS % (AUTO) 88.2 % (40.0-77.0); PLATELET COUNT (AUTO) 653 K/uL (130-400); RED BLOOD CELL COUNT(AUTO) 3.75 MIL/uL (4.00-5.50)
[2019-11-19 04:31] LABS: WHITE BLOOD COUNT (AUTO) 43.3 K/uL (4.8-10.8)
[2019-11-19 04:47] LABS: ALBUMIN 1.6 g/dL (3.5-5.0); BILIRUBIN,TOTAL 0.3 mg/dL (0.2-1.0); CREATININE 0.8 mg/dL (0.5-1.5); POTASSIUM 3.8 mmol/L (3.5-5.1); TOTAL PROTEIN, SERUM 6.3 g/dL (6.0-8.3)
[2019-11-19] MEDS: IPRATROPIUM/ALBUTEROL SULFATE 3 ML SOLUTION IH SCH ×3 (06:24→19:25)
[2019-11-19] MEDS: MEROPENEM 1 GM VIAL IVP SCH ×2 (09:26→21:42)
[2019-11-19] MEDS: METOPROLOL TARTRATE 25 MG TAB PO SCH ×3 (09:26→21:43)
[2019-11-19] MEDS: ENOXAPARIN SODIUM 40 MG/0.4 ML SYRINGE SQ SCH (09:27)
[2019-11-19] MEDS: FUROSEMIDE 10 MG/ML 2ML VIAL IV SCH ×2 (09:27→21:43)
--- NOTE | 2019-11-19 09:30 | NUR ---
GIVEN SCHEDULED MEDS, TAKEN WHOLE AND TOLERATED WELL.
[2019-11-19] MEDS: FAMOTIDINE 20MG TAB 20 MG TAB PO SCH (10:50)
[2019-11-19] MEDS: VANCOMYCIN 1.25 GM in SODIUM CHLORIDE 0.9% 250 ML IV SCH (14:15)
[2019-11-19] MEDS: ACETAMINOPHEN 325 MG TAB PO PRN ×2 (16:59→21:44)
--- NOTE | 2019-11-19 18:00 | NUR ---
REMAINS ON HIGH FLOW O2 @ 30 LITERS, 70% FIO2. O2 SAT 94-97%, APPEARS COMFORTABLE. VISITING WITH FAMILY MEMBERS.
[2019-11-19] MEDS: ALPRAZOLAM 0.25 MG TABLET PO PRN (21:43)
[2019-11-20 03:30] VITALS: BP 117/65
[2019-11-20 05:47] LABS: BASOPHILS % (AUTO) 0.8 % (0.0-5.0); EOSINOPHILS % (AUTO) 0.5 % (0.0-8.0); HEMATOCRIT 31.9 % (36-48); LYMPHOCYTES % (AUTO) 1.8 % (21.0-51.0); MEAN CORPUSCULAR HEMOGLOBIN 25.1 pg (27.0-33.0); MEAN CORPUSCULAR HGB CONC 29.5 g/dL (32.0-36.0); MEAN CORPUSCULAR VOLUME 85.1 fL (79-99); MONOCYTES % (AUTO) 4.6 % (3.0-13.0); PLATELET COUNT (AUTO) 663 K/uL (130-400); RED BLOOD CELL COUNT(AUTO) 3.75 MIL/uL (4.00-5.50); RED CELL DISTRIBUTION WIDTH 18.2 % (11.0-15.5)
[2019-11-20 05:58] LABS: WHITE BLOOD COUNT (AUTO) 46.1 K/uL (4.8-10.8)
[2019-11-20 06:03] LABS: ALBUMIN 1.6 g/dL (3.5-5.0); BILIRUBIN,TOTAL 0.2 mg/dL (0.2-1.0); CREATININE 0.9 mg/dL (0.5-1.5); POTASSIUM 3.7 mmol/L (3.5-5.1); TOTAL PROTEIN, SERUM 6.2 g/dL (6.0-8.3)
[2019-11-20] MEDS: IPRATROPIUM/ALBUTEROL SULFATE 3 ML SOLUTION IH SCH ×5 (06:24→23:18)
[2019-11-20 08:41] VITALS: BP 146/77
[2019-11-20] MEDS: FUROSEMIDE 10 MG/ML 2ML VIAL IV SCH (08:41)
[2019-11-20] MEDS: METOPROLOL TARTRATE 25 MG TAB PO SCH ×3 (08:41→21:35)
[2019-11-20] MEDS: MEROPENEM 1 GM VIAL IVP SCH (08:41)
[2019-11-20] MEDS: FAMOTIDINE 20MG TAB 20 MG TAB PO SCH (08:41)
[2019-11-20] MEDS: ENOXAPARIN SODIUM 40 MG/0.4 ML SYRINGE SQ SCH (08:42)
[2019-11-20] MEDS: ALPRAZOLAM 0.25 MG TABLET PO PRN ×2 (09:04→21:34)
[2019-11-20 11:00] VITALS: BP 128/64
--- NOTE | 2019-11-20 12:27 | NUR ---
LENO PLAN VISITED WITH PATIENT. EXPLAINED THAT I HAVE BEEN TRYING TO CALL BOTH SONS INCLUDING LUCIA. NO ANSWER. LUCIA PHONE GOES STRAIGHT TO VOICEMAIL. EXPLAINED THAT PATIENT IS OF SOUND MIND AND IS ABLE TO MAKE DECISIONS. SHE IS CHOOSING NOT TOO. IF CHILDREN DONT ANSWER THEN SHE WILL HAVE TO MAKE DECISIONS. EXPLAINED THAT IS RECOMMENDING [facility] AND THAT I HAVE BEEN TRYING FOR THE LAST 2 DAYS FOR SON TO CALL ME BACK SINCE HE IS NOT ANSWERING PHONE. PER PATIENT HE SHOULD BE COMING BY TODAY AND WILL WAIT FOR HIM. REFUSES TO MAKE DECISION. Addendum: 11/20/19 at 1231 by SHAJI KIMBROUGH RN CM Amended: Links added.
[2019-11-20 15:00] VITALS: BP 131/75
[2019-11-20] MEDS: VANCOMYCIN 1.5 GM in SODIUM CHLORIDE 0.9% 250 ML IV SCH (18:47)
[2019-11-20 19:39] VITALS: BP 131/64
[2019-11-20] MEDS ORDERED: HEPARIN SODIUM 5000UNIT/ML 1ML VIAL SQ PRN (20:15)
--- NOTE | 2019-11-20 21:00 | NUR ---
Per Jacob start heparin drip due to BLE DVTs.
[2019-11-20 21:20] LABS: INR 1.04 (0.85-1.15); PARTIAL THROMBOPLASTIN TIME 38.7 SEC (26.3-35.5); PROTHROMBIN TIME 10.9 SEC (9.6-11.6)
[2019-11-20] MEDS: ACETAMINOPHEN 325 MG TAB PO PRN (21:35)
[2019-11-20] MEDS: HEPARIN 25000 UNITS/250 ML D5W 250 ML IV SCH (23:16)
[2019-11-20 23:23] VITALS: BP 117/50
[2019-11-21 03:10] VITALS: BP 114/59
[2019-11-21] MEDS: IPRATROPIUM/ALBUTEROL SULFATE 3 ML SOLUTION IH SCH ×4 (07:00→23:38)
[2019-11-21 08:00] VITALS: BP 104/57
[2019-11-21] MEDS: FAMOTIDINE 20MG TAB 20 MG TAB PO SCH (08:39)
[2019-11-21] MEDS: METOPROLOL TARTRATE 25 MG TAB PO SCH ×3 (08:39→20:55)
[2019-11-21] MEDS: FUROSEMIDE 10 MG/ML 4ML VIAL IV SCH (10:05)
[2019-11-21] MEDS: ALPRAZOLAM 0.25 MG TABLET PO PRN (10:20)
[2019-11-21] MEDS: ACETAMINOPHEN 325 MG TAB PO PRN ×2 (10:20→20:55)
[2019-11-21 12:12] VITALS: BP 112/59
--- NOTE | 2019-11-21 13:04 | NUR ---
DC PLAN VISITED WITH PATIENT NO FAMILY AT BEDSIDE. STILL DOES NOT WANT TO SIGN TAWNYA FOR [facility]. LET NURSE KNOW IF THEY SEE FAMILY PLEASE CALL ME AND OR GET TAWNYA SIGNED. Addendum: 11/21/19 at 1305 by SHAJI KIMBROUGH RN CM Amended: Links added.
[2019-11-21 15:58] VITALS: BP 92/51
--- NOTE | 2019-11-21 16:31 | NUR ---
DC PLAN CALLED SEVERAL TIMES TO SONS TODAY. SON MACIE CALLED BACK SAID HE WOULD SPEAK TO SON LUCIA REGARDING LT[facility] AND WOULD CALL ME BACK. CALLED BACK AT 1600 ASKED ABOUT BIOPSY ACCORDING TO HIM THEY LET NURSE KNOW YESTERDAY THAT THEY WANTED IT DONE NOW. TOLD HIM I WOULD LET. DR. CASTRO KNOW. SAID [facility] WANT THAT DONE BEFORE MAKING ANY OTHER DECISIONS. SPOKE TO DR. CASTRO TOLD HIM ABOUT FAMILY WANTING BIOPSY. SAID [facility] WILL SCHEDULE IT FOR TOMORROW MORNING. Addendum: 11/21/19 at 1644 by SHAJI KIMBROUGH RN CM Amended: Links added.
[2019-11-21] MEDS: VANCOMYCIN 1.5 GM in SODIUM CHLORIDE 0.9% 250 ML IV SCH (18:22)
[2019-11-21 20:07] VITALS: BP 131/61
--- NOTE | 2019-11-21 21:12 | NUR ---
PATIENT FOUND WITHOUT NC OXYGEN SATURATION in 70S , PT diaphoretic and lethargic hi-flow nc beeping -pagd rt to check equipment bp 139/70 called by telecom coordinator- converted to afib rvr hr 150s-160s glucose 235 patient arousable to sternal rub hospitalist paged for further orders. rt at bedside with patient
[2019-11-21] MEDS ORDERED: NITROGLYCERIN 1GM/1 INCH PACKET TD SCH (21:30)
[2019-11-21 21:54] LABS: ABG BASE EXCESS 7.6 mmol/L (-2.0-3.0); ABG HCO3 37.9 mmol/L (21.0-28.0); ABG OXYGEN SATURATION 97.7 % (95.0-99.0); ABG PCO2 83 mmHg (32-45)
--- NOTE | 2019-11-21 22:19 | NUR ---
heparin gtt restarted heparin gtt restarted at 16.98units/kg as per last documented rate on heparin flowsheet new iv started to left lower forearm
[2019-11-21 23:37] VITALS: BP 125/70
[2019-11-22] VITALS (59 sets, daily range): BP systolic 60–149; BP diastolic 23–85
--- NOTE | 2019-11-22 03:30 | NUR ---
patient lethargic called to patients room by nurse luis manuel pettit for assistance with patient care. while changing patients linen and bottom, noticed that patient was weak and lethargic and unresponsive to painful/verbal stimuli oxygen levels at 100%, bp 95/62, in/out of afib/sr 105-106. paged monitor car operator pauline controller mechanic and stated she would be up to see patient attempted to call family/son trena arreola [phone] multiple calls attempted and messages left by myself, christy Rn and Julissa warehouse packaging supervisor
[2019-11-22 04:06] LABS: ABG BASE EXCESS 6.4 mmol/L (-2.0-3.0); ABG HCO3 36.2 mmol/L (21.0-28.0); ABG OXYGEN SATURATION 98.7 % (95.0-99.0); ABG PCO2 86 mmHg (32-45)
--- NOTE | 2019-11-22 04:13 | NUR ---
family called/no answer-spoke with dr jamison spoke with dr jamison-informed him of patients current status. informed him of last nights episode of respiratory distress, diaphoresis and abg result and that patient was placed on bipap informed him of patients most recent abg and patient lethargy and unresponsive to painful or verbal stimuli er doc unavailable due to stemi code dr jamison stated that pt will need to be intubated but to try and notify family one last time prior to icu transfer
--- NOTE | 2019-11-22 04:19 | NUR ---
dr jamison repaged unable to connect with mr fields or marci arreola. informed dr jamison , he informed me that he will arrive to intubate
[2019-11-22 04:22] LABS: HEMATOCRIT 35.8 % (36-48); MEAN CORPUSCULAR HEMOGLOBIN 24.6 pg (27.0-33.0); MEAN CORPUSCULAR HGB CONC 27.7 g/dL (32.0-36.0); MEAN CORPUSCULAR VOLUME 89.1 fL (79-99); RED BLOOD CELL COUNT(AUTO) 4.02 MIL/uL (4.00-5.50)
[2019-11-22 04:26] LABS: WHITE BLOOD COUNT (AUTO) 69.2 K/uL (4.8-10.8)
[2019-11-22 04:27] LABS: PLATELET COUNT (AUTO) 725 K/uL (130-400)
[2019-11-22 04:33] LABS: INR 0.98 (0.85-1.15); PARTIAL THROMBOPLASTIN TIME 32.2 SEC (26.3-35.5); PROTHROMBIN TIME 10.3 SEC (9.6-11.6)
[2019-11-22] MEDS ORDERED: LACTATED RINGERS 1000ML 1,000 ML IV ONE (04:37)
[2019-11-22] MEDS ORDERED: NOREPINEPHRINE BITARTRATE 1 MG/1 ML ML IV ONE (04:38)
[2019-11-22] MEDS ORDERED: SODIUM CHLORIDE 0.9% 250 ML IV ONE (04:38)
[2019-11-22 04:41] LABS: ALBUMIN 1.6 g/dL (3.5-5.0); BILIRUBIN,TOTAL 0.2 mg/dL (0.2-1.0); CREATININE 1.1 mg/dL (0.5-1.5); MAGNESIUM 2.4 mg/dL (1.80-2.40); POTASSIUM 4.4 mmol/L (3.5-5.1); TOTAL PROTEIN, SERUM 6.8 g/dL (6.0-8.3)
--- NOTE | 2019-11-22 04:41 | NUR ---
DR MARIN AT BEDSIDE . ETOMIDATE 20 MG IV GIVEN . PATIENT INTUBATED 7.O ETT 24 CM AT TEETH. VENT SETTINGS AC 22/ TV 380/ PEEP 5 / FIO2 80%. UNABLE TO REACH SONS BY PHONE PRIOR TO INTUBATION. NEW ORDER FOR LR BOLUS 1000 ML, PRECEDEX AND FENTANYL FOR SEDATION. LEVOPHED TO KEEP MAP > 65. NGT LIWS, CXR AND ABG POST INTUBATION.
--- NOTE | 2019-11-22 04:45 | NUR ---
INTUBATED; PLACED ON VENT Addendum: 11/23/19 at 0644 by GERBER XAVIER RTSLT Amended: Links added.
[2019-11-22 04:59] LABS: ABG BASE EXCESS 7.5 mmol/L (-2.0-3.0); ABG HCO3 33.1 mmol/L (21.0-28.0); ABG OXYGEN SATURATION 97.2 % (95.0-99.0); ABG PCO2 52 mmHg (32-45)
[2019-11-22] MEDS ORDERED: FENTANYL CITRATE PF 0.05 MG/ML 1,000 MCG in SODIUM CHLORIDE 0.9% 100 ML IVPB SCH (05:00)
[2019-11-22] MEDS ORDERED: FENTANYL 1000MCG+NS 100ML 100 ML ONE (05:03)
[2019-11-22 05:19] LABS: BAND NEUTROPHILS % (MANUAL) 8 % (0-2); BASOPHILS % (MANUAL) 1 % (0-2); MAN.DIFF COMMENT-IMPRESSION MANUAL DIFFERENTIAL; METAMYELOCYTES % 1 % (0-0); MONOCYTES % (MANUAL) 4 % (2-9); SEGMENTED NEUTROPHILS % 86 % (40-70)
--- NOTE | 2019-11-22 05:23 | NUR ---
ABG + REPORTED TO DR. MARIN WITH LACTIC ACID 3.58- NEW ORDERS FOR AN ADDITIONAL 500 ML LR, REDUCE VENTILATOR RATE TO 18, CONTINUE LEVOPHED, REPEAT LACTIC ACID IN 4 HOURS.
[2019-11-22] MEDS ORDERED: LACTATED RINGERS 1000ML IV ONE (05:30)
[2019-11-22] MEDS: LACTATED RINGERS 1000ML 1,000 ML IV SCH ×6 (05:35→13:08)
--- NOTE | 2019-11-22 06:00 | NUR ---
Jose VIGIL NP NOTIFIED OF PATIENT WITH HEPARIN DRIP STOPPED AT APPROX 0400 IN TELEMETRY REPORTED BY RN DUE TO NO IV. NEW ORDER TO RESUME HEPARIN AT PREVIOUS RATE.
[2019-11-22] MEDS: IPRATROPIUM/ALBUTEROL SULFATE 3 ML SOLUTION IH SCH ×3 (06:18→18:11)
[2019-11-22] MEDS: DEXMEDETOMIDINE HCL 400 MCG in SODIUM CHLORIDE 0.9% 100 ML IV SCH (06:38)
[2019-11-22] MEDS: METOPROLOL TARTRATE 25 MG TAB PO SCH ×3 (08:26→21:00)
[2019-11-22] MEDS: FUROSEMIDE 10 MG/ML 4ML VIAL IV SCH (08:26)
--- NOTE | 2019-11-22 08:28 | NUR ---
I ATTEMPTED TO CONTACT FAMILY LISTED ON FACE SHEETS-- NO ANSWERS-MESSAGE LEFT TO CALL US NANI
[2019-11-22] MEDS ORDERED: FUROSEMIDE 10 MG/ML 4ML VIAL IV SCH (09:00)
--- NOTE | 2019-11-22 09:30 | NUR ---
FAMILY Sw contacted by Haylee, charge nurse regarding family situation. Sw attempted to reach Greg Jamison [phone], no answer no voicemail. Sw called pt's son Robbie Jamison [phone]. No answer, left message. Informed son that brother has never contacted us and family is needed at bedside. Waiting for response
[2019-11-22] MEDS: FAMOTIDINE/PF 20 MG/2 ML VIAL IV SCH (09:38)
--- NOTE | 2019-11-22 10:10 | NUR ---
DNR Sw recd call back from son Robbie Jamison. per Robbie, his brother Greg is with [employer] and cell phone access is very limited. Robbie has contacted his other brother Jerry and Jerry's and asked them to come to [facility]. SW discussed code status with son. Per Son Robbie family does not want pt resuscitated nor intubated. Sw gave phone to nurse Neri to update son on pt's condition. Nurse informed son that pt was intubated at this time. Son states that when brothers arrive, nurse can discuss withdrawal with them. Son gave Tom verbal consent to make pt DNR. Sw to follow and assist as needed
[2019-11-22] MEDS ORDERED: LACTATED RINGERS 1000ML 1,000 ML IV SCH (10:15)
[2019-11-22] MEDS: MEROPENEM 1 GM VIAL IVP SCH ×2 (10:39→18:39)
[2019-11-22] MEDS: SODIUM CHLORIDE 0.9% 1000ML 1,000 ML IV SCH ×2 (10:39→18:40)
--- NOTE | 2019-11-22 12:32 | NUR ---
HOLD EVALUATION. Pt CURRENTLY INTUBATED. SKILLED SPEECH THERAPY EVALUATION IS WARRANTED 24 HOURS POST EXTUBATION. Addendum: 11/22/19 at 1233 by THERESA GONZALES, [facility] Amended: Links added.
--- NOTE | 2019-11-22 12:39 | NUR ---
RD Follow Up - Tube Feeding Recommendations Notification for tube feeding recommendations received. Recommend continuous Glucerna 1.5, initiate at 25mls/hr for 5hrs. Advance by 5mls Q5Hrs to goal of 45mls/hr (1620kcal/89gm Protein/day). Rec flush: 200ml Q6hrs. Pt Sedated. NGT in place. Elevated BG levels (289) possible related to infection and medications. Pt also with increased risk of protein-calorie malnutrition. Tube feeding Recommendations placed in Pt chart. RD to continue to monitor. Addendum: 11/22/19 at [address] Amended: Links added.
[2019-11-22] MEDS: NOREPINEPHRINE 4MG/NS 250ML 250 ML IV SCH ×2 (13:11→18:50)
--- NOTE | 2019-11-22 13:45 | NUR ---
f/u Sw left message for son Robbie, informing him no family has come to see pt or talk to doctors. Waiting for call back
--- NOTE | 2019-11-22 14:00 | NUR ---
attempt to contact family Attempt was made again to contact Greg son that was suppose to arrive since earlier this morning as per other son Robbie. No answer on phone, message was left. will continue to follow up.
[2019-11-22 15:51] LABS: CREATININE 1.2 mg/dL (0.5-1.5); POTASSIUM 3.6 mmol/L (3.5-5.1)
[2019-11-22 20:00] LABS: CREATININE 1.2 mg/dL (0.5-1.5); POTASSIUM 3.6 mmol/L (3.5-5.1)
[2019-11-22] MEDS: VANCOMYCIN 1GM+NS 250ML 250 ML IV SCH (20:37)
[2019-11-22] MEDS: CHLORHEXIDINE GLUCONATE 473 ML MOUTHWASH MM SCH (21:36)
--- NOTE | 2019-11-22 22:24 | NUR ---
PM LAB RESULTS REPORTED TO DR MARIN NO NEW ORDERS.
[2019-11-23] VITALS (41 sets, daily range): BP systolic 66–171; BP diastolic 36–102
[2019-11-23] MEDS: IPRATROPIUM/ALBUTEROL SULFATE 3 ML SOLUTION IH SCH ×5 (00:28→23:25)
[2019-11-23] MEDS: MEROPENEM 1 GM VIAL IVP SCH ×3 (01:42→18:00)
[2019-11-23] MEDS ORDERED: FENTANYL 1000MCG+NS 100ML 100 ML ONE (01:46)
[2019-11-23] MEDS ORDERED: FENTANYL CITRATE PF 0.05 MG/ML 1,000 MCG in SODIUM CHLORIDE 0.9% 100 ML IVPB PRN (02:00)
[2019-11-23] MEDS: DEXMEDETOMIDINE HCL 400 MCG in SODIUM CHLORIDE 0.9% 100 ML IV SCH ×2 (04:23→22:17)
[2019-11-23] MEDS: NOREPINEPHRINE 4MG/NS 250ML 250 ML IV SCH ×2 (04:23→11:01)
[2019-11-23 04:43] LABS: BASOPHILS % (AUTO) 0.1 % (0.0-5.0); EOSINOPHILS % (AUTO) 0.1 % (0.0-8.0); HEMATOCRIT 29.7 % (36-48); LYMPHOCYTES % (AUTO) 1.7 % (21.0-51.0); MEAN CORPUSCULAR HEMOGLOBIN 25.1 pg (27.0-33.0); MEAN CORPUSCULAR HGB CONC 29.6 g/dL (32.0-36.0); MEAN CORPUSCULAR VOLUME 84.9 fL (79-99); MONOCYTES % (AUTO) 4.4 % (3.0-13.0); NEUTROPHILS % (AUTO) 88.9 % (40.0-77.0); NUCLEATED RED BLOOD CELLS 0.1 % (0.0-0.19); PLATELET COUNT (AUTO) 497 K/uL (130-400); RED CELL DISTRIBUTION WIDTH 19.2 % (11.0-15.5)
[2019-11-23 04:52] LABS: WHITE BLOOD COUNT (AUTO) 54.5 K/uL (4.8-10.8)
[2019-11-23 05:01] LABS: ALBUMIN 1.2 g/dL (3.5-5.0); BILIRUBIN,TOTAL 0.2 mg/dL (0.2-1.0); CREATININE 1.3 mg/dL (0.5-1.5); MAGNESIUM 1.9 mg/dL (1.80-2.40); POTASSIUM 3.8 mmol/L (3.5-5.1); TOTAL PROTEIN, SERUM 5.4 g/dL (6.0-8.3)
[2019-11-23] MEDS: SODIUM CHLORIDE 0.9% 1000ML 1,000 ML IV SCH ×2 (05:49→14:40)
[2019-11-23] MEDS: HEPARIN 25000 UNITS/250 ML D5W 250 ML IV SCH (07:13)
[2019-11-23] MEDS: METOPROLOL TARTRATE 25 MG TAB PO SCH ×3 (09:00→21:00)
[2019-11-23] MEDS: FAMOTIDINE/PF 20 MG/2 ML VIAL IV SCH (09:31)
[2019-11-23] MEDS: CHLORHEXIDINE GLUCONATE 473 ML MOUTHWASH MM SCH ×2 (09:35→21:02)
[2019-11-23] MEDS: FUROSEMIDE 10 MG/ML 4ML VIAL IV SCH (09:54)
[2019-11-23] MEDS: ACETAMINOPHEN 325 MG TAB PO PRN (10:01)
[2019-11-23 12:37] LABS: ABG BASE EXCESS 5.3 mmol/L (-2.0-3.0); ABG HCO3 32.4 mmol/L (21.0-28.0); ABG OXYGEN SATURATION 89.8 % (95.0-99.0); ABG PCO2 57 mmHg (32-45)
--- NOTE | 2019-11-23 13:56 | NUR ---
Attempt to contact family/ No Family Visit Reason for attempt of contact is to discuss plan of care of critically ill patient. Patient is on vasopressors, multiple medications intubated/sedated, critically ill, and interventions need to be done in regards to patients condition, unfortunately patient lacks capacity to make own health care decisions. Family has been attempted to be contacted by phone since no family has been by the bedside or called in more than 24hrs. 2 calls were made to Jerry(son) with no answer, 2 calls were made to Robbie(son) with no answer, but voicemail was left, and 2 calls were made to Greg(son) with no answer but voicemail was also left.
--- NOTE | 2019-11-23 19:23 | NUR ---
Family at Bedside Greg son at bedside here. Family was made aware of patients current condition and poor prognosis as per doctors in regard to all the overall medical conditions going on. Family was encouraged to questions and these were answered. Family was made aware that contact with them has been attempted multiple times since admitted to the ICU in regards to her plan of care and unfortunately since all the delay of time, decisions needed to be made as soon as possible in regards to healthcare decision and plan. Time was given to family to discuss and eventually Greg called me into room, he was speaking to his brothers and decision was made that they wanted to ''respect her last words which was to treat everything". Clarification was made in regards to DNR and treating everything. Family was in accordance to continue treating everything to "get her better", but not revoke the DNR.
[2019-11-23] MEDS: VANCOMYCIN 1GM+NS 250ML 250 ML IV SCH (21:01)
[2019-11-24] VITALS (73 sets, daily range): BP systolic 51–149; BP diastolic 31–84
[2019-11-24] MEDS: MEROPENEM 1 GM VIAL IVP SCH ×3 (01:04→18:00)
[2019-11-24] MEDS: INSULIN HUMULIN R 100 UNIT/ML 3ML SQ SCH ×4 (01:05→16:59)
[2019-11-24] MEDS ORDERED: FENTANYL 1000MCG+NS 100ML 100 ML ONE (02:40)
[2019-11-24 03:50] LABS: BASOPHILS % (AUTO) 0.4 % (0.0-5.0); EOSINOPHILS % (AUTO) 0.3 % (0.0-8.0); HEMATOCRIT 31.1 % (36-48); LYMPHOCYTES % (AUTO) 2.4 % (21.0-51.0); MEAN CORPUSCULAR HEMOGLOBIN 24.6 pg (27.0-33.0); MEAN CORPUSCULAR HGB CONC 28.9 g/dL (32.0-36.0); MONOCYTES % (AUTO) 3.8 % (3.0-13.0); NEUTROPHILS % (AUTO) 88.2 % (40.0-77.0); NUCLEATED RED BLOOD CELLS 0.1 % (0.0-0.19); PLATELET COUNT (AUTO) 434 K/uL (130-400); RED BLOOD CELL COUNT(AUTO) 3.66 MIL/uL (4.00-5.50); RED CELL DISTRIBUTION WIDTH 18.9 % (11.0-15.5)
[2019-11-24 04:00] LABS: WHITE BLOOD COUNT (AUTO) 56.2 K/uL (4.8-10.8)
[2019-11-24 04:06] LABS: ALBUMIN 1.2 g/dL (3.5-5.0); BILIRUBIN,TOTAL 0.3 mg/dL (0.2-1.0); CREATININE 1.3 mg/dL (0.5-1.5); TOTAL PROTEIN, SERUM 6.6 g/dL (6.0-8.3)
[2019-11-24] MEDS: SODIUM CHLORIDE 0.9% 1000ML 1,000 ML IV SCH ×2 (04:30→12:19)
[2019-11-24] MEDS: FENTANYL CITRATE PF 0.05 MG/ML 1,000 MCG in SODIUM CHLORIDE 0.9% 100 ML IVPB SCH (04:32)
[2019-11-24] MEDS: IPRATROPIUM/ALBUTEROL SULFATE 3 ML SOLUTION IH SCH ×4 (06:13→23:06)
[2019-11-24] MEDS: METOPROLOL TARTRATE 25 MG TAB PO SCH ×2 (07:54→07:55)
[2019-11-24] MEDS: FAMOTIDINE/PF 20 MG/2 ML VIAL IV SCH (08:25)
[2019-11-24] MEDS: FUROSEMIDE 10 MG/ML 4ML VIAL IV SCH (08:25)
[2019-11-24] MEDS: CHLORHEXIDINE GLUCONATE 473 ML MOUTHWASH MM SCH ×2 (08:26→20:46)
[2019-11-24] MEDS: NOREPINEPHRINE 4MG/NS 250ML 250 ML IV SCH ×2 (08:27→20:45)
[2019-11-24] MEDS ORDERED: ESMOLOL HCL 2,500 MG in SODIUM CHLORIDE 0.9% 250 ML IV SCH (09:30)
--- NOTE | 2019-11-24 09:45 | NUR ---
HOLD EVALUATION. PATIENT CONTINUES INTUBATED. NG TUBE FEEDINGS. FUEL MANAGEMENT HANDLER COORDINATED WITH NURSE NEAL AND WILL FOLLOW PATIENT FOR SKILLED SPEECH THERAPY EVALUATION 24 HOURS POST EXTUBATION. Addendum: 11/24/[address]AILYN WOLFE Amended: Links added.
[2019-11-24] MEDS ORDERED: DILTIAZEM HCL 125 MG/25 ML 125 MG in SODIUM CHLORIDE 0.9% 100 ML IV SCH (10:00)
[2019-11-24] MEDS ORDERED: MIDAZOLAM HCL 1 MG/ML 2ML VIAL ONE (10:48)
[2019-11-24] MEDS ORDERED: FENTANYL CITRATE PF 50 MCG/1 ML 2ML VIAL ONE (10:48)
[2019-11-24] MEDS: DEXMEDETOMIDINE HCL 400 MCG in SODIUM CHLORIDE 0.9% 100 ML IV SCH (11:01)
--- NOTE | 2019-11-24 11:10 | NUR ---
TIME OUT DONE AT BEDSIDE WITH GI STAFF,PRIMARY RN AND DR MARIN FOR BEDSIDE BRONCHOSCOPY-CONFIRMED AND PROCEDURE STARTED
--- NOTE | 2019-11-24 11:16 | NUR ---
BRONCHOSCOPY COMPLETED-SCOPE OUT
--- NOTE | 2019-11-24 12:01 | NUR ---
[facility] consult Unable to perform assessment at this time as patient just underwent procedure. Spoke with patient's nurse who stated she has applied barrier cream and will add allevyn life foam once patient is stable. Reconsult [facility] as needed.
[2019-11-24 13:23] LABS: INR 1.05 (0.85-1.15); PROTHROMBIN TIME 11.3 SEC (9.6-11.6)
--- NOTE | 2019-11-24 15:12 | NUR ---
PT EVALUATED FOR PICC ACCESS, ORDERED BY DR. CAILIN MARIN. NOTED BOTH ARMS TO BE SWOLLEN, RED AND WARM AT ANTECUBITAL SITES. PT HAS BEEN ON HEPARIN DRIP FOR RECENT LOWER EXTREMITY DVT'S. CALLED DR. MARIN TO NOTIFY OF BOTH PT UPPER EXTREMITIES, NOTED TO BE RED, WARM, SWOLLEN. HE ORDERED ULTRASOUND OF BOTH UPPER EXTREMITIES TO RULE OUT DVT. VAL MADDEN NOTIFIED AND WILL PLACE ORDER AND ADVISE PICC NURSE THROUGH THE WATER/WASTEWATER ENGINEER OF ULTRASOUND RESULTS TO WHETHER TO PROCEED WITH PICC PLACEMENT OR NOT.
[2019-11-24 16:40] LABS: APPEARANCE BODY FLUID SLIGHTLY CLOUDY (CLEAR); COLOR,BODY FLUID COLORLESS (LT YELLOW); SPECIMENTYPE,BODY FLUID L; TOTAL VOLUME,BODY FLUID 20 mL
[2019-11-24 16:41] LABS: BODY FLUID RBC 640 /cu. mm.; BODY FLUID WBC 175 /cu. mm.
[2019-11-24 17:00] LABS: BF LYMPHOCYTE 3 %
[2019-11-24] MEDS: VANCOMYCIN 1GM+NS 250ML 250 ML IV SCH (20:57)
--- NOTE | 2019-11-24 21:22 | NUR ---
Call placed to Dr Andres. Reported US venous doppler studies of upper extremities results. Asked if wished Heparin drip restarted or wait until PICC line inserted tomorrow am. Informed per GEORGE Costa PICC line nurse will be here at [address] Andres ordered to restart Heparin drip.
[2019-11-24] MEDS: HEPARIN 25000 UNITS/250 ML D5W 250 ML IV SCH (21:42)
[2019-11-25] VITALS (27 sets, daily range): BP systolic 96–147; BP diastolic 58–78
[2019-11-25] MEDS: INSULIN HUMULIN R 100 UNIT/ML 3ML SQ SCH ×4 (01:04→18:00)
[2019-11-25 02:29] LABS: BASOPHILS % (AUTO) 0.4 % (0.0-5.0); EOSINOPHILS % (AUTO) 0.1 % (0.0-8.0); HEMATOCRIT 29.6 % (36-48); LYMPHOCYTES % (AUTO) 1.7 % (21.0-51.0); MEAN CORPUSCULAR HEMOGLOBIN 25.2 pg (27.0-33.0); MEAN CORPUSCULAR HGB CONC 29.7 g/dL (32.0-36.0); MEAN CORPUSCULAR VOLUME 84.8 fL (79-99); MONOCYTES % (AUTO) 3.5 % (3.0-13.0); NUCLEATED RED BLOOD CELLS 0.1 % (0.0-0.19); PLATELET COUNT (AUTO) 491 K/uL (130-400); RED BLOOD CELL COUNT(AUTO) 3.49 MIL/uL (4.00-5.50); RED CELL DISTRIBUTION WIDTH 19.3 % (11.0-15.5)
[2019-11-25 02:42] LABS: WHITE BLOOD COUNT (AUTO) 58.3 K/uL (4.8-10.8)
[2019-11-25 02:44] LABS: ALBUMIN 1.1 g/dL (3.5-5.0); BILIRUBIN,TOTAL 0.2 mg/dL (0.2-1.0)
[2019-11-25] MEDS: DEXMEDETOMIDINE HCL 400 MCG in SODIUM CHLORIDE 0.9% 100 ML IV SCH (02:46)
[2019-11-25] MEDS: MEROPENEM 1 GM VIAL IVP SCH ×3 (03:04→19:08)
[2019-11-25] MEDS: SODIUM CHLORIDE 0.9% 1000ML 1,000 ML IV SCH (05:30)
[2019-11-25] MEDS: IPRATROPIUM/ALBUTEROL SULFATE 3 ML SOLUTION IH SCH ×4 (06:16→23:38)
[2019-11-25] MEDS: FUROSEMIDE 10 MG/ML 4ML VIAL IV SCH (09:00)
[2019-11-25] MEDS: FAMOTIDINE/PF 20 MG/2 ML VIAL IV SCH (09:00)
--- NOTE | 2019-11-25 09:00 | NUR ---
PICC LINE NURSE HERE TO PLACE PICC LINE. PENDING LINE PLACEMENT AT THIS TIME.
[2019-11-25] MEDS: CHLORHEXIDINE GLUCONATE 473 ML MOUTHWASH MM SCH ×2 (09:04→20:17)
[2019-11-25] MEDS ORDERED: METOLAZONE 2.5 MG TABLET PO SCH (10:00)
--- NOTE | 2019-11-25 10:00 | NUR ---
SPOKE C/ DR MARIN IN REGARDS TO THORACENTESIS. CONSIDERING PATIENTS CORMORBIDITIES WE WANTED TO ENSURE THAT PATIENTS FAMILY FULLY UNDERSTAND CURRENT STATUS AND SITUATION OVERALL. PATIENT HAVING RECURRENT FLUID BUILD UP, BLADDER CA, AND LEVOPHED DEPENDENT. CALLED SON LUCIA. NO ANSWER AND NO FAMILY HERE AT THIS TIME.
[2019-11-25] MEDS ORDERED: PHARMACY COMMUNICATION MISC SCH (10:15)
[2019-11-25] MEDS ORDERED: NOREPINEPHRINE BITARTRATE 4 MG in DEXTROSE 5%-WATER 250 ML IV SCH (10:30)
[2019-11-25] MEDS ORDERED: FENTANYL CITRATE PF 0.05 MG/ML 1,000 MCG in SODIUM CHLORIDE 0.9% 100 ML IVPB SCH (10:30)
[2019-11-25] MEDS ORDERED: NOREPINEPHRINE BITARTRATE 4 MG in DEXTROSE 5%-WATER 250 ML IV PRN ×4 (10:30)
[2019-11-25] MEDS ORDERED: FENTANYL 1000MCG+NS 100ML 100 ML ONE (10:45)
[2019-11-25 11:15] LABS: ABG BASE EXCESS 3.2 mmol/L (-2.0-3.0); ABG HCO3 28.6 mmol/L (21.0-28.0); ABG OXYGEN SATURATION 91.3 % (95.0-99.0); ABG PCO2 46 mmHg (32-45)
[2019-11-25] MEDS ORDERED: ALBUMIN (HUMAN) 25% 50 ML IV SCH (14:00)
--- NOTE | 2019-11-25 16:00 | NUR ---
SON IRMA HERE AT BEDSIDE. MADE AWARE OF PATIENT CURRENT STATUS, CORMORBIDITIES AND PLAN FOR THORACENTESIS LATER TODAY. HE STATED TO CALL LUCIA THE OLDER BROTHER IN REGARDS TO ANY CHANGES IN CARE. MADE AWARE THAT LUCIA WAS CALLED IN AM WITH NO ANSWER AND WILL FOLLOW UP.
--- NOTE | 2019-11-25 16:45 | NUR ---
LUCIA CALLED AND ANSWERED. MADE AWARE OF PATIENTS CURRENT STATUS, CORMORBIDITIES, AND ENSURING THAT FAMILY FULLY UNDERSTANDS THE EXTENT OF PATIENTS CONDITION AT THIS TIME. PATIENT LEVOPHED DEPENDENT, VENTED, OG TUBE IN PLACE FOR TUBE FEEDINGS, AND PATIENT NOT FOLLOWING COMMANDS. ASKED TO MAKE SURE AFTER EDUCATING FAMILY ON CURRENT STATUS THAT THEY WANT TO CONTINUE WITH THORACENTESIS. LUCIA STATED HE WANTED TO CONTINUE AND HAVE EVERYTHING DONE. MADE AWARE THAT WE WILL PROCEED WITH THORACENTESIS. DR. MARIN MADE AWARE. STATED WE WILL PROCEED TOMORROW WITH THORACENTESIS.
[2019-11-25] MEDS ORDERED: NOREPINEPHRINE 4MG/NS 250ML 250 ML IV ONE (20:08)
[2019-11-25] MEDS: DEXTROSE 5% IV SCH (20:13)
[2019-11-25] MEDS: VANCOMYCIN IV SCH (20:13)
[2019-11-25] MEDS: WATER IV SCH (20:13)
[2019-11-26] VITALS (33 sets, daily range): BP systolic 80–130; BP diastolic 54–71
[2019-11-26] MEDS: DEXMEDETOMIDINE HCL 400 MCG in SODIUM CHLORIDE 0.9% 100 ML IV SCH ×2 (00:36→20:26)
[2019-11-26] MEDS: INSULIN HUMULIN R 100 UNIT/ML 3ML SQ SCH ×4 (00:57→17:28)
[2019-11-26] MEDS: MEROPENEM 1 GM VIAL IVP SCH ×3 (02:15→17:43)
[2019-11-26] MEDS: IPRATROPIUM/ALBUTEROL SULFATE 3 ML SOLUTION IH SCH ×4 (06:11→23:34)
[2019-11-26 06:36] LABS: HEMATOCRIT 31.2 % (36-48); MEAN CORPUSCULAR HEMOGLOBIN 24.8 pg (27.0-33.0); MEAN CORPUSCULAR HGB CONC 27.6 g/dL (32.0-36.0); MEAN CORPUSCULAR VOLUME 89.9 fL (79-99); PLATELET COUNT (AUTO) 473 K/uL (130-400); RED BLOOD CELL COUNT(AUTO) 3.47 MIL/uL (4.00-5.50); RED CELL DISTRIBUTION WIDTH 19.2 % (11.0-15.5)
[2019-11-26 06:55] LABS: ALBUMIN 1.3 g/dL (3.5-5.0); BILIRUBIN,TOTAL 0.1 mg/dL (0.2-1.0); CREATININE 1.1 mg/dL (0.5-1.5); TOTAL PROTEIN, SERUM 5.7 g/dL (6.0-8.3)
[2019-11-26 06:56] LABS: INR 1.03 (0.85-1.15); PARTIAL THROMBOPLASTIN TIME 61.8 SEC (26.3-35.5); PROTHROMBIN TIME 11.1 SEC (9.6-11.6)
[2019-11-26 07:02] LABS: WHITE BLOOD COUNT (AUTO) 61.5 K/uL (4.8-10.8)
[2019-11-26 07:33] LABS: LYMPHOCYTES % (MANUAL) 1 % (22-44); MONOCYTES % (MANUAL) 7 % (2-9); SEGMENTED NEUTROPHILS % 92 % (40-70)
[2019-11-26 07:35] LABS: MAN.DIFF COMMENT-IMPRESSION MANUAL DIFFERENTIAL; PLATELET MORPHOLOGY COMMENT SLIGHT INCREASED
[2019-11-26] MEDS: FAMOTIDINE/PF 20 MG/2 ML VIAL IV SCH (09:15)
[2019-11-26] MEDS: CHLORHEXIDINE GLUCONATE 473 ML MOUTHWASH MM SCH ×2 (09:16→22:43)
[2019-11-26 11:45] LABS: INR 0.99 (0.85-1.15); PARTIAL THROMBOPLASTIN TIME 30.6 SEC (26.3-35.5); PROTHROMBIN TIME 10.7 SEC (9.6-11.6)
[2019-11-26] MEDS ORDERED: NOREPINEPHRINE 4MG/NS 250ML 250 ML IV ONE (12:18)
[2019-11-26] MEDS ORDERED: MIDAZOLAM HCL 1 MG/ML 2ML VIAL ONE ×2 (12:41→12:48)
--- NOTE | 2019-11-26 12:43 | NUR ---
THORACENTESIS PERFORMED. 1L REMOVED. PATIENT TOLERATED WELL. CXR FOLLOW UP: NO PNEUMOTHORAX
--- NOTE | 2019-11-26 12:52 | NUR ---
FOLLOW UP Pt CONTINUES TO BE INTUBATED AT THIS TIME. CRUSHER LOADER OPERATOR WILL CONTINUE TO FOLLOW Pt. Addendum: 11/26/19 at 1253 by THERESA GONZALES, [facility] Amended: Links added.
[2019-11-26] MEDS ORDERED: MIDAZOLAM HCL 1 MG/ML 2ML VIAL IVP SCH (13:00)
[2019-11-26 14:13] LABS: GLUCOSE,BODY FLUID 156 mg/dL (1-40)
[2019-11-26 14:14] LABS: APPEARANCE BODY FLUID CLEAR (CLEAR); COLOR,BODY FLUID YELLOW (LT YELLOW); SPECIMENTYPE,BODY FLUID PLEURAL; TOTAL VOLUME,BODY FLUID 24 mL
[2019-11-26 14:15] LABS: BODY FLUID RBC 818 /cu. mm.; BODY FLUID WBC 85 /cu. mm.
[2019-11-26 14:21] LABS: BF LYMPHOCYTE 15 %; BF MESOTHELIAL 10 %; BF MONOCYTE 8 %
[2019-11-26 14:24] LABS: CHOLESTEROL,BODY FLUID < 50 mg/dL
--- NOTE | 2019-11-26 14:41 | NUR ---
ALEXANDRO FOLLOW UP Pt tolerating Tube feeding, Glucerna 1.5 @45mls/hr. Pt with PCM and Buttock ulcer; Recommend Alfa BID-btwn meals, 500mg Vitamin C QD, 220mg ZnSO4 QD for wound healing support. Recommend 30mL ProMod BID-btwn meals *Alfa INSTRUCTIONS - Mix 1 pkt Alfa with 4oz (120mL) H2O in container, mix well. Flush Feeding tube with 30mL H2O BEFORE AND AFTER Alfa. Administer Alfa via 60mL or larger syringe. *ProMod INSTRUCTIONS* - Flush feeding tube with 30mL H2O BEFORE AND AFTER Promod administration. Mix 30mL ProMod with 30mL H2O, Administer via 60mL or larger syringe. Addendum: 11/26/19 at [address] Amended: Links added.
[2019-11-26 16:22] LABS: TOTAL PROTEIN, SERUM 5.8 g/dL (6.0-8.3)
[2019-11-26] MEDS ORDERED: FENTANYL 1000MCG+NS 100ML 100 ML ONE (17:52)
[2019-11-26] MEDS: FENTANYL CITRATE PF 0.05 MG/ML 1,000 MCG in SODIUM CHLORIDE 0.9% 100 ML IVPB SCH (17:58)
[2019-11-26] MEDS: NOREPINEPHRINE BITARTRATE 8 MG in DEXTROSE 5%-WATER 250 ML IV PRN (20:25)
[2019-11-26] MEDS: WATER IV SCH (20:26)
[2019-11-26] MEDS: DEXTROSE 5% IV SCH (20:26)
[2019-11-26] MEDS: VANCOMYCIN IV SCH (20:26)
[2019-11-26] MEDS: ENOXAPARIN SODIUM 60 MG/0.6 ML SQ SCH (22:40)
--- NOTE | 2019-11-26 23:20 | NUR ---
rounding @0757 No family at bedside today, phone call placed to FORTINO Avalos to discuss plan of care with . No answer to primary phone of FORTINO Avalos; voicemail placed by Dr. James in an attempt to reach out to FORTINO Avalos as multiple unsuccessful attempts to contact FORTINO Avalos have been made throughout the day, Family has not return call yet .
[2019-11-27] VITALS (28 sets, daily range): BP systolic 89–161; BP diastolic 44–77
[2019-11-27] MEDS: MEROPENEM 1 GM VIAL IVP SCH ×3 (01:41→17:35)
[2019-11-27] MEDS: INSULIN HUMULIN R 100 UNIT/ML 3ML SQ SCH ×3 (01:42→17:41)
[2019-11-27] MEDS: IPRATROPIUM/ALBUTEROL SULFATE 3 ML SOLUTION IH SCH ×4 (06:18→23:10)
[2019-11-27] MEDS: CHLORHEXIDINE GLUCONATE 473 ML MOUTHWASH MM SCH ×2 (08:17→20:36)
[2019-11-27] MEDS: ENOXAPARIN SODIUM 60 MG/0.6 ML SQ SCH ×2 (08:17→20:37)
[2019-11-27] MEDS: FAMOTIDINE/PF 20 MG/2 ML VIAL IV SCH (08:17)
[2019-11-27] MEDS: DEXMEDETOMIDINE HCL 400 MCG in SODIUM CHLORIDE 0.9% 100 ML IV SCH (08:18)
[2019-11-27 08:27] LABS: ALBUMIN 1.2 g/dL (3.5-5.0); BILIRUBIN,TOTAL 0.2 mg/dL (0.2-1.0); CREATININE 1.3 mg/dL (0.5-1.5); POTASSIUM 4.1 mmol/L (3.5-5.1); TOTAL PROTEIN, SERUM 5.6 g/dL (6.0-8.3)
[2019-11-27 08:42] LABS: MEAN CORPUSCULAR VOLUME 86.2 fL (79-99); NUCLEATED RED BLOOD CELLS 0.2 % (0.0-0.19); PLATELET COUNT (AUTO) 455 K/uL (130-400); RED BLOOD CELL COUNT(AUTO) 3.48 MIL/uL (4.00-5.50); RED CELL DISTRIBUTION WIDTH 20.1 % (11.0-15.5)
[2019-11-27 08:43] LABS: BAND NEUTROPHILS % (MANUAL) 3 % (0-2); LYMPHOCYTES % (MANUAL) 6 % (22-44); SEGMENTED NEUTROPHILS % 91 % (40-70)
[2019-11-27 08:44] LABS: MAN.DIFF COMMENT-IMPRESSION MANUAL DIFFERENTIAL
[2019-11-27 08:45] LABS: PLATELET MORPHOLOGY COMMENT SLIGHT INCREASED
[2019-11-27 08:49] LABS: WHITE BLOOD COUNT (AUTO) 61.3 K/uL (4.8-10.8)
--- NOTE | 2019-11-27 09:44 | NUR ---
CALLED FIRST SON, IRMA. NO ANSWER. CALLED LUCIA THIS MORNING IN AN EFFORT TO ESTABLISH A PLAN IN REGARDS TO WHICH DIRECTION HE WOULD WISH TO GO. ANSWERED. MADE AWARE OF THORACENTESIS THAT HAPPENED YESTERDAY. SINCE NO ONE ANSWERED OR SHOWED UP YESTERDAY POST PROCEDURE. PATIENT NOT TOLERATING CPAP, AND HAVING TO BE SWITCHED BACK TO A/C MODE, WELL BRADYCARDIA DOWN IN THE 50'S. HE STATED, HE IS IN [place] AND WILL BE FLYING IN ON Tue AND WILL BE HERE THE NEXT DAY. I ASKED IF IT WOULD BE POSSIBLE TO SCHEDULE A MEETING WITH HIM, AND HIS BROTHERS, AND CASE MANAGEMENT. HE STATED HE WOULD LIKE TO SPEAK WITH HIS BROTHERS FIRST. TO CALL BACK AFTER 1600. WILL FOLLOW UP AT [facility] UPON TIME IN AN EFFORT TO FACILITATE A PLAN OF CARE.
--- NOTE | 2019-11-27 10:30 | NUR ---
CALL FROM SON BRIAN recd call from Son Robbie Jamison [phone]. Per son, he is extremely upset that he recd a call from Dr James at midnight. Son reports he felt call was threatening and implying that pt's son don't care about pt. Son states that he lives in [place], brother Jerry cares for their disabled brother Alban, and Greg works [employer] and is not available by phone. Robbie states he is dealing with many personal issues at this time and has given staff consents when needed and made pt DNR. Robbie states that Jerry was here Tuesday, Sat and Sun, but doctors did not round when family was here. Son stated that Dr James threaten to take pt's case to [employer] and son is fine with that, "tell him to bring it on". "I plan on reporting him as well." Son stated multiple complaints and concerns and made it clear that family wants to continue treatment on pt, but if pt's heart were to stop, they want no resuscitation done. Son would like call from someone in Administration to discuss matter. Brian notified Mickie, ICU Director and STEFFANY Cazares of above. Mickie states she will contact son.
[2019-11-27] MEDS ORDERED: ALBUMIN (HUMAN) 25% 50 ML IV SCH (10:45)
[2019-11-27 11:07] LABS: ABG BASE EXCESS 4.9 mmol/L (-2.0-3.0); ABG HCO3 32.8 mmol/L (21.0-28.0); ABG OXYGEN SATURATION 92.2 % (95.0-99.0); ABG PCO2 62 mmHg (32-45)
[2019-11-27] MEDS ORDERED: INSULIN HUMULIN R 100 UNIT/ML 3ML SQ SCH (11:30)
[2019-11-27] MEDS ORDERED: COMPOUND IV MISC 1 EACH IVSOLN MISC PRN (12:15)
[2019-11-27] MEDS: ALBUMIN (HUMAN) 25% 100 ML IV SCH ×2 (12:21→22:37)
--- NOTE | 2019-11-27 17:20 | NUR ---
SON MACIE HERE TO SEE PATIENT WITH . ALSO, SON IRMA HERE TO SEE PATIENT. DR JANE HERE. SPOKE WITH BROTHERS IN REGARDS TO PATIENT STATUS. SON'S STATED THEY WILL ALL GET TOGETHER ON TUESDAY TO DISCUSS CARE AMONGST EACH OTHER TO SEE WHICH DIRECTION THEY WOULD LIKE TO HEAD IN.
[2019-11-27] MEDS: NOREPINEPHRINE BITARTRATE 8 MG in DEXTROSE 5%-WATER 250 ML IV PRN (18:32)
--- NOTE | 2019-11-27 20:30 | NUR ---
MD ROUNDS DR. CASTRO ROUNDED ON PT. UPDATED ON PATIENT CONDITION AND PLAN FOR SON LUCIA TO FLY IN ON TUESDAY NIGHT AND TO MEET WITH OTHER SIBLINGS TUESDAY. NO FAMILY AT THE BEDSIDE
[2019-11-27] MEDS: WATER IV SCH (20:36)
[2019-11-27] MEDS: VANCOMYCIN IV SCH (20:36)
[2019-11-27] MEDS: DEXTROSE 5% IV SCH (20:36)
[2019-11-28] VITALS (49 sets, daily range): BP systolic 77–133; BP diastolic 36–78
[2019-11-28] MEDS: INSULIN HUMULIN R 100 UNIT/ML 3ML SQ SCH ×4 (00:13→18:49)
[2019-11-28] MEDS: MEROPENEM 1 GM VIAL IVP SCH ×3 (01:57→18:47)
[2019-11-28] MEDS: NOREPINEPHRINE BITARTRATE 8 MG in DEXTROSE 5%-WATER 250 ML IV PRN (06:31)
[2019-11-28 06:34] LABS: HEMATOCRIT 27.2 % (36-48); MEAN CORPUSCULAR HGB CONC 29.4 g/dL (32.0-36.0); NUCLEATED RED BLOOD CELLS 0.3 % (0.0-0.19); PLATELET COUNT (AUTO) 374 K/uL (130-400); RED CELL DISTRIBUTION WIDTH 19.9 % (11.0-15.5)
[2019-11-28 06:53] LABS: ALBUMIN 2.1 g/dL (3.5-5.0); BILIRUBIN,TOTAL 0.5 mg/dL (0.2-1.0); CREATININE 1.3 mg/dL (0.5-1.5); POTASSIUM 3.7 mmol/L (3.5-5.1); TOTAL PROTEIN, SERUM 5.7 g/dL (6.0-8.3)
[2019-11-28] MEDS: IPRATROPIUM/ALBUTEROL SULFATE 3 ML SOLUTION IH SCH ×4 (07:01→23:06)
[2019-11-28 07:39] LABS: EOSINOPHILS % (MANUAL) 1 % (1-6); LYMPHOCYTES % (MANUAL) 1 % (22-44); MAN.DIFF COMMENT-IMPRESSION MANUAL DIFFERENTIAL; MONOCYTES % (MANUAL) 3 % (2-9); PLATELET MORPHOLOGY COMMENT ADEQUATE; SEGMENTED NEUTROPHILS % 95 % (40-70)
[2019-11-28 08:42] LABS: ABG BASE EXCESS 6.6 mmol/L (-2.0-3.0); ABG OXYGEN SATURATION 93.2 % (95.0-99.0); ABG PCO2 43 mmHg (32-45)
[2019-11-28] MEDS: FENTANYL 1000MCG+NS 100ML IV.SOLN IV SCH (08:49)
[2019-11-28] MEDS: ENOXAPARIN SODIUM 60 MG/0.6 ML SQ SCH ×2 (08:56→20:10)
[2019-11-28] MEDS: FAMOTIDINE/PF 20 MG/2 ML VIAL IV SCH (08:56)
[2019-11-28] MEDS: ALBUMIN (HUMAN) 25% 100 ML IV SCH ×2 (08:56→20:09)
[2019-11-28] MEDS: CHLORHEXIDINE GLUCONATE 473 ML MOUTHWASH MM SCH ×2 (09:00→20:09)
--- NOTE | 2019-11-28 11:00 | NUR ---
CHANGE TUBE FEEDING FORMULA PT IS INTUBATED AND SEDATED. BUTTOCKS ULCER NOTED. ALTERED NUTRITION RELATED LABS REVIEWED. MEDS REVIEWED. LBM: 11/27; LOOSE. RD RECOMMENDS TO CHANGE TUBE FEEDING FORMULA TO VITAL AF 1.2 START FULL STRENGTH AT 25ML/HR - INCREASE RATE BY 5ML EVERY 5HRS TOLERATED GOAL RATE IS 45ML/HR FLUSH WITH 50ML Q6HRS PROVIDE LINNEA BID FOR WOUND HEALING - MIX 1PK WITH 120ML + FLUSH WITH 30ML BEFORE AND AFTER EACH ADMINISTRATION = TOTAL WATER IS 1636ML/D MONITOR LABS, RESIDUALS, BM RD WILL CONTINUE TO MONITOR AND FOLLOW UP, THANK YOU. Addendum: 11/28/19 at [address] Amended: Links added.
[2019-11-28] MEDS: DEXTROSE 5%-WATER 1,000 ML IV SCH ×3 (11:08→20:15)
--- NOTE | 2019-11-28 12:50 | NUR ---
FOLLOW UP COMPLETED. Pt CONTINUES TO BE INTUBATED. PLEASE PROVIDE NEW ORDER WHEN EXTUBATED FOR SKILLED SPEECH THERAPY INTERVENTION. Addendum: 11/28/19 at 1251 by THERESA GONZALES, [facility] Amended: Links added.
--- NOTE | 2019-11-28 13:26 | NUR ---
f/u with Al Avalos BRIAN notified by staff that al Avalos is due to arrive tonight and will be here tomorrow. Sw left message for al Avalos reuqesting to confirm that he will be here tomorrow so we can arrange for him to meet with dr Andres . Waiting for response
[2019-11-28] MEDS: DEXMEDETOMIDINE HCL 400 MCG in SODIUM CHLORIDE 0.9% 100 ML IV SCH (13:35)
--- NOTE | 2019-11-28 13:47 | NUR ---
FAMILY MEETING TUESDAY BRIAN recd call back from son Robbie. Son states his work has advised they do not fly, so he is now driving to [place] instead of flying. Son reports that he will leave tomorrow about 7am and it's a [address] He plans to meet with his brothers to discuss plan for pt prior to meeting with Dr Andres on Tuesday. They should be here about !!:45 -noon tuesday. Brian notified CM of above
--- NOTE | 2019-11-28 15:15 | NUR ---
LENO SPOKE TO DR. MARIN REGARDING PLAN OF CARE. SAID OKAY TO TALK TO FAMILY REGARDING TRACHE AND PEG. HE STRONGLY FEELS THAT PATIENT SHOULD BE COMFORT CARE. FAMILY HAS BEEN HESITANT TO MAKE A DECISION. COMPUTER AIDE SPOKE TO FAMILY PLAN IS FOR THEM TO MEET WITH FAMILY AND MD ON TUESDAY. Addendum: 11/28/19 at 1519 by SHAJI KIMBROUGH RN CM Amended: Links added.
[2019-11-28] MEDS: VANCOMYCIN IV SCH (20:09)
[2019-11-28] MEDS: DEXTROSE 5% IV SCH (20:09)
[2019-11-28] MEDS: WATER IV SCH (20:09)
[2019-11-29] VITALS (64 sets, daily range): BP systolic 54–166; BP diastolic 26–84
[2019-11-29] MEDS: INSULIN HUMULIN R 100 UNIT/ML 3ML SQ SCH ×4 (01:00→18:41)
[2019-11-29] MEDS: MEROPENEM 1 GM VIAL IVP SCH ×3 (02:20→17:16)
[2019-11-29] MEDS: DEXTROSE 5%-WATER 1,000 ML IV SCH ×3 (04:07→21:13)
[2019-11-29] MEDS: DEXMEDETOMIDINE HCL 400 MCG in SODIUM CHLORIDE 0.9% 100 ML IV SCH ×2 (04:07→21:12)
[2019-11-29] MEDS: FENTANYL 1000MCG+NS 100ML IV.SOLN IV SCH (05:53)
[2019-11-29] MEDS ORDERED: NOREPINEPHRINE 4MG/NS 250ML 250 ML IV SCH (06:30)
[2019-11-29] MEDS: IPRATROPIUM/ALBUTEROL SULFATE 3 ML SOLUTION IH SCH ×4 (06:30→23:41)
[2019-11-29 06:40] LABS: HEMATOCRIT 25.6 % (36-48); MEAN CORPUSCULAR HEMOGLOBIN 24.8 pg (27.0-33.0); MEAN CORPUSCULAR HGB CONC 29.3 g/dL (32.0-36.0); MEAN CORPUSCULAR VOLUME 84.5 fL (79-99); NUCLEATED RED BLOOD CELLS 0.3 % (0.0-0.19); PLATELET COUNT (AUTO) 317 K/uL (130-400); RED BLOOD CELL COUNT(AUTO) 3.03 MIL/uL (4.00-5.50)
[2019-11-29] MEDS ORDERED: NOREPINEPHRINE BITARTRATE 8 MG in SODIUM CHLORIDE 0.9% 250 ML IV PRN (06:45)
[2019-11-29 06:55] LABS: POTASSIUM 3.6 mmol/L (3.5-5.1)
[2019-11-29 07:07] LABS: WHITE BLOOD COUNT (AUTO) 63.3 K/uL (4.8-10.8)
--- NOTE | 2019-11-29 07:10 | NUR ---
INITIATED SEDATION VACATION.
[2019-11-29 07:12] LABS: ALBUMIN 2.3 g/dL (3.5-5.0); BILIRUBIN,TOTAL 0.7 mg/dL (0.2-1.0); CREATININE 1.2 mg/dL (0.5-1.5); TOTAL PROTEIN, SERUM 5.5 g/dL (6.0-8.3)
--- NOTE | 2019-11-29 07:50 | NUR ---
INITIATED VENTILATOR WEANING TRIALS, CPAP TRIALS.
--- NOTE | 2019-11-29 08:00 | NUR ---
DURING VENTILATOR WEANING TRIALS PATIENT HR HAS INCREASED TO 130S, O2SATS DROPPED TO 90%, PATIENT BREATHING RATE HAS INCREASED FROM 22 TO 30 BMP. PATIENT IF HAVING FACIAL GRIMACING AND LOOKS IN DISTRESS. PATIENT PUT BACK ON ASSIST CONTROL VENTILATOR MODE AND RESTARTED SEDATION.
[2019-11-29] MEDS: FAMOTIDINE/PF 20 MG/2 ML VIAL IV SCH (08:12)
[2019-11-29] MEDS: ALBUMIN (HUMAN) 25% 100 ML IV SCH ×2 (08:12→21:00)
[2019-11-29] MEDS: ENOXAPARIN SODIUM 60 MG/0.6 ML SQ SCH (08:15)
[2019-11-29 08:30] LABS: BAND NEUTROPHILS % (MANUAL) 16 % (0-2); LYMPHOCYTES % (MANUAL) 1 % (22-44); MAN.DIFF COMMENT-IMPRESSION MANUAL DIFFERENTIAL; MONOCYTES % (MANUAL) 2 % (2-9); PLATELET MORPHOLOGY COMMENT ADEQUATE; SEGMENTED NEUTROPHILS % 81 % (40-70)
[2019-11-29] MEDS: CHLORHEXIDINE GLUCONATE 473 ML MOUTHWASH MM SCH ×2 (09:00→21:11)
[2019-11-29] MEDS ORDERED: PHARMACY COMMUNICATION MISC SCH (09:45)
[2019-11-29 09:51] LABS: ABG BASE EXCESS 5.8 mmol/L (-2.0-3.0); ABG HCO3 29.9 mmol/L (21.0-28.0); ABG OXYGEN SATURATION 96.3 % (95.0-99.0); ABG PCO2 41 mmHg (32-45)
[2019-11-29] MEDS: HEPARIN 25000 UNITS/250 ML D5W 250 ML IV SCH (12:09)
[2019-11-29] MEDS: DEXTROSE 5% IV SCH (20:00)
[2019-11-29] MEDS: WATER IV SCH (20:00)
[2019-11-29] MEDS: VANCOMYCIN IV SCH (20:00)
[2019-11-29 20:43] LABS: INR 1.14 (0.85-1.15); PROTHROMBIN TIME 12.2 SEC (9.6-11.6)
[2019-11-29 20:47] LABS: PARTIAL THROMBOPLASTIN TIME > 120.0 SEC (26.3-35.5)
[2019-11-29] MEDS ORDERED: ALBUMIN (HUMAN) 25% 100 ML IV SCH (21:11)
[2019-11-29] MEDS: NOREPINEPHRINE BITARTRATE 8 MG in DEXTROSE 5%-WATER 250 ML IV PRN (21:59)
[2019-11-30] VITALS (88 sets, daily range): BP systolic 51–135; BP diastolic 18–73
[2019-11-30] MEDS: INSULIN HUMULIN R 100 UNIT/ML 3ML SQ SCH ×4 (00:10→20:56)
[2019-11-30] MEDS: MEROPENEM 1 GM VIAL IVP SCH ×3 (02:46→17:32)
[2019-11-30] MEDS: FENTANYL 1000MCG+NS 100ML IV.SOLN IV SCH ×2 (02:47→17:33)
[2019-11-30] MEDS: IPRATROPIUM/ALBUTEROL SULFATE 3 ML SOLUTION IH SCH ×3 (06:21→18:30)
[2019-11-30] MEDS: DEXTROSE 5%-WATER 1,000 ML IV SCH ×3 (06:29→22:38)
[2019-11-30] MEDS ORDERED: SODIUM CHLORIDE 0.9% 1000ML 1,000 ML IV SCH (07:45)
[2019-11-30 08:41] LABS: ABG BASE EXCESS 2.8 mmol/L (-2.0-3.0); ABG HCO3 28.1 mmol/L (21.0-28.0); ABG OXYGEN SATURATION 91.6 % (95.0-99.0); ABG PCO2 46 mmHg (32-45)
[2019-11-30] MEDS: FAMOTIDINE/PF 20 MG/2 ML VIAL IV SCH (09:00)
[2019-11-30] MEDS ORDERED: ENOXAPARIN SODIUM 30 MG/0.3 ML SQ SCH (09:00)
[2019-11-30] MEDS: CHLORHEXIDINE GLUCONATE 473 ML MOUTHWASH MM SCH ×2 (11:16→21:46)
[2019-11-30] MEDS: WATER IV SCH (11:18)
[2019-11-30] MEDS: DEXTROSE 5% IV SCH (11:18)
[2019-11-30] MEDS: VANCOMYCIN IV SCH (11:18)
[2019-11-30] MEDS: DEXMEDETOMIDINE HCL 400 MCG in SODIUM CHLORIDE 0.9% 100 ML IV SCH (13:41)
--- NOTE | 2019-11-30 14:09 | NUR ---
RD FOLLOW UP PT IS CURRENTLY INTUBATED AND SEDATED. 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 COMFORT MEASURES WAS RECOMMENDED. LABS REVIEWED (WBC 63, NA 151, BNP 2180). BUTTOCK ULCER NOTED. LBM: 11/28, LOOSE. PT HAVING LOOSE STOOLS [place]CE [place] [facility] S/P THORACENTESIS. PT IS TOLERATING VITAL AF 1.2 WITH MINIMAL RESIDUALS OF 10ML, NOTED. RD RECOMMENDS TO CONTINUE CURRENT TF RECOMMENDATIONS - MEET GOAL RATE IN ORDER TO MEET PT NUTRITION AND FLUID NEEDS, RN WAS NOTIFIED CONTINUE LINNEA BID VIA TF FOR WOUND HEALING, RN WAS NOTIFIED RECOMMEND 500MG VITAMIN C BID - AID WOUND HEALING RECOMMEND 220MG ZINC SULFATE QD FOR 14 DAYS - AID WOUND HEALING MONITOR LABS, BM, RESIDUALS RD WILL CONTINUE TO MONITOR AND FOLLOW UP. Addendum: 11/30/19 at [address] Amended: Links added.
[2019-11-30] MEDS: HEPARIN 25000 UNITS/250 ML D5W 250 ML IV SCH (17:38)
[2019-11-30 18:39] LABS: EOSINOPHILS % (AUTO) 0.1 % (0.0-8.0); HEMATOCRIT 27.2 % (36-48); LYMPHOCYTES % (AUTO) 1.1 % (21.0-51.0); MEAN CORPUSCULAR HEMOGLOBIN 24.9 pg (27.0-33.0); MEAN CORPUSCULAR HGB CONC 29.4 g/dL (32.0-36.0); MEAN CORPUSCULAR VOLUME 84.7 fL (79-99); MONOCYTES % (AUTO) 2.7 % (3.0-13.0); NEUTROPHILS % (AUTO) 91.9 % (40.0-77.0); NUCLEATED RED BLOOD CELLS 0.2 % (0.0-0.19); PLATELET COUNT (AUTO) 113 K/uL (130-400); RED BLOOD CELL COUNT(AUTO) 3.21 MIL/uL (4.00-5.50); RED CELL DISTRIBUTION WIDTH 20.1 % (11.0-15.5)
[2019-11-30 18:43] LABS: WHITE BLOOD COUNT (AUTO) 77.9 K/uL (4.8-10.8)
[2019-11-30] MEDS ORDERED: SODIUM BICARB 50MEQ 50ML VIAL IV ONE (19:00)
[2019-11-30 19:03] LABS: ALBUMIN 2.2 g/dL (3.5-5.0); BILIRUBIN,TOTAL 0.5 mg/dL (0.2-1.0); CREATININE 1.1 mg/dL (0.5-1.5); POTASSIUM 3.8 mmol/L (3.5-5.1); TOTAL PROTEIN, SERUM 4.9 g/dL (6.0-8.3)
[2019-11-30 19:20] LABS: BAND NEUTROPHILS % (MANUAL) 9 % (0-2); EOSINOPHILS % (MANUAL) 1 % (1-6); LYMPHOCYTES % (MANUAL) 2 % (22-44); MAN.DIFF COMMENT-IMPRESSION MANUAL DIFFERENTIAL; MONOCYTES % (MANUAL) 8 % (2-9); SEGMENTED NEUTROPHILS % 80 % (40-70)
[2019-11-30] MEDS ORDERED: ATORVASTATIN CALCIUM 20 MG TABLET PO SCH (21:00)
[2019-12-01] VITALS (69 sets, daily range): BP systolic 67–140; BP diastolic 34–87
[2019-12-01] MEDS: IPRATROPIUM/ALBUTEROL SULFATE 3 ML SOLUTION IH SCH ×4 (00:20→16:36)
[2019-12-01 04:32] LABS: HEMATOCRIT 29.2 % (36-48); MEAN CORPUSCULAR HEMOGLOBIN 24.9 pg (27.0-33.0); MEAN CORPUSCULAR HGB CONC 29.1 g/dL (32.0-36.0); MEAN CORPUSCULAR VOLUME 85.4 fL (79-99); NUCLEATED RED BLOOD CELLS 0.4 % (0.0-0.19); PLATELET COUNT (AUTO) 368 K/uL (130-400); RED BLOOD CELL COUNT(AUTO) 3.42 MIL/uL (4.00-5.50); RED CELL DISTRIBUTION WIDTH 20.1 % (11.0-15.5)
[2019-12-01 04:38] LABS: WHITE BLOOD COUNT (AUTO) 78.8 K/uL (4.8-10.8)
[2019-12-01] MEDS: MEROPENEM 1 GM VIAL IVP SCH ×3 (04:54→18:01)
[2019-12-01 04:56] LABS: CREATININE 1.2 mg/dL (0.5-1.5); POTASSIUM 3.7 mmol/L (3.5-5.1)
[2019-12-01 05:50] LABS: BAND NEUTROPHILS % (MANUAL) 9 % (0-2); MAN.DIFF COMMENT-IMPRESSION MANUAL DIFFERENTIAL; MONOCYTES % (MANUAL) 3 % (2-9); SEGMENTED NEUTROPHILS % 88 % (40-70)
[2019-12-01 05:51] LABS: PLATELET MORPHOLOGY COMMENT ADEQUATE
[2019-12-01] MEDS: INSULIN HUMULIN R 100 UNIT/ML 3ML SQ SCH ×3 (06:00→18:14)
[2019-12-01] MEDS: DEXTROSE 5%-WATER 1,000 ML IV SCH (06:38)
[2019-12-01 08:06] LABS: ABG BASE EXCESS -4.1 mmol/L (-2.0-3.0); ABG HCO3 22.8 mmol/L (21.0-28.0); ABG OXYGEN SATURATION 87.5 % (95.0-99.0); ABG PCO2 49 mmHg (32-45)
[2019-12-01] MEDS: DEXTROSE 5% IV SCH (09:42)
[2019-12-01] MEDS: WATER IV SCH (09:42)
[2019-12-01] MEDS: VANCOMYCIN IV SCH (09:42)
[2019-12-01] MEDS: FENTANYL 1000MCG+NS 100ML IV.SOLN IV SCH (09:45)
[2019-12-01] MEDS: FAMOTIDINE/PF 20 MG/2 ML VIAL IV SCH (10:18)
[2019-12-01] MEDS: CHLORHEXIDINE GLUCONATE 473 ML MOUTHWASH MM SCH ×2 (10:24→23:49)
[2019-12-01] MEDS: DEXMEDETOMIDINE HCL 400 MCG in SODIUM CHLORIDE 0.9% 100 ML IV SCH (12:18)
[2019-12-01] MEDS: NOREPINEPHRINE BITARTRATE 8 MG in DEXTROSE 5%-WATER 250 ML IV PRN (12:24)
[2019-12-02] VITALS (81 sets, daily range): BP systolic 63–131; BP diastolic 25–114
[2019-12-02] MEDS: IPRATROPIUM/ALBUTEROL SULFATE 3 ML SOLUTION IH SCH ×3 (00:12→11:30)
[2019-12-02] MEDS: MEROPENEM 1 GM VIAL IVP SCH (01:19)
[2019-12-02] MEDS: INSULIN HUMULIN R 100 UNIT/ML 3ML SQ SCH ×2 (01:21→06:00)
[2019-12-02] MEDS: NOREPINEPHRINE BITARTRATE 8 MG in DEXTROSE 5%-WATER 250 ML IV PRN (02:35)
[2019-12-02] MEDS: ACETAMINOPHEN 325 MG TAB PO PRN (03:36)
[2019-12-02 03:56] LABS: MEAN CORPUSCULAR HEMOGLOBIN 24.5 pg (27.0-33.0); MEAN CORPUSCULAR HGB CONC 29.7 g/dL (32.0-36.0); MEAN CORPUSCULAR VOLUME 82.6 fL (79-99); NUCLEATED RED BLOOD CELLS 2.9 % (0.0-0.19); PLATELET COUNT (AUTO) 342 K/uL (130-400); RED BLOOD CELL COUNT(AUTO) 3.51 MIL/uL (4.00-5.50); RED CELL DISTRIBUTION WIDTH 20.5 % (11.0-15.5)
[2019-12-02 04:21] LABS: WHITE BLOOD COUNT (AUTO) 55.1 K/uL (4.8-10.8)
[2019-12-02 04:41] LABS: CREATININE 1.5 mg/dL (0.5-1.5); POTASSIUM 4.5 mmol/L (3.5-5.1)
[2019-12-02 05:56] LABS: BAND NEUTROPHILS % (MANUAL) 13 % (0-2); MAN.DIFF COMMENT-IMPRESSION MANUAL DIFFERENTIAL; METAMYELOCYTES % 1 % (0-0); MONOCYTES % (MANUAL) 1 % (2-9); PLATELET MORPHOLOGY COMMENT ADEQUATE; REACTIVE LYMPHOCYTES 1 % (0-0); SEGMENTED NEUTROPHILS % 84 % (40-70)
[2019-12-02] MEDS: DEXMEDETOMIDINE HCL 400 MCG in SODIUM CHLORIDE 0.9% 100 ML IV SCH (06:54)
[2019-12-02] MEDS ORDERED: NOREPINEPHRINE BITARTRATE 32 MG in SODIUM CHLORIDE 0.9% 250 ML IV PRN (07:15)
[2019-12-02] MEDS ORDERED: FUROSEMIDE 10 MG/ML 4ML VIAL IV SCH (09:00)
[2019-12-02] MEDS: FAMOTIDINE/PF 20 MG/2 ML VIAL IV SCH (09:02)
[2019-12-02] MEDS: CHLORHEXIDINE GLUCONATE 473 ML MOUTHWASH MM SCH (09:03)
[2019-12-02 10:54] LABS: ABG BASE EXCESS -5.7 mmol/L (-2.0-3.0); ABG HCO3 21.3 mmol/L (21.0-28.0); ABG OXYGEN SATURATION 87.4 % (95.0-99.0); ABG PCO2 49 mmHg (32-45)
[2019-12-02] MEDS ORDERED: VASOPRESSIN 40 UNITS in SODIUM CHLORIDE 0.9% 40 ML IV PRN (11:15)
[2019-12-02] MEDS ORDERED: MIDAZOLAM 50MG-0.9% NS 50ML 50 ML BAG IV PRN (11:15)
[2019-12-02] MEDS ORDERED: EPINEPHRINE 5 MG in SODIUM CHLORIDE 0.9% 245 ML IV PRN (11:15)
--- NOTE | 2019-12-02 11:45 | NUR ---
CALLED PATIENT'S SON, LUCIA @ ) PER DR. MARIN'S REQUEST. DR. MARIN SPOKE WITH SON ABOUT PATIENT'S STATUS. LUCIA REQUESTING COMFORT MEASURES. ORDERS RECEIVED BY CHANO CALDERON FROM DR. MARIN AND WILL CARRY OUT.
[2019-12-02] MEDS ORDERED: EPINEPHRINE 1 MG/ML AMPULE ONE (11:46)
--- NOTE | 2019-12-02 12:05 | NUR ---
CALLED PATIENT'S SONMACIE ) TO INFORM HIM OF PATIENT'S STATUS AND DR. MARIN'S VISIT. NO ANSWER AT THIS TIME....MESSAGE LEFT ON VOICEMAIL. Addendum: 12/02/19 at 1207 by DOTTIE TAMEZ RN RN CALL TO PATIENT'S SON LUCIA WAS PLACED AT 1145AM.
--- NOTE | 2019-12-02 12:23 | NUR ---
CALLED SON, LUCIA ) AND INFORMED HIM OF HIS MOM'S PASSING. STATED THAT ARRANGEMENTS HAD BEEN DONE AND HOME WILL BE CALLING ICU FOR DETAILS.
--- NOTE | 2019-12-02 13:43 | NUR ---
At approximately 1100 patient stopped responding to pressor support. Dr Andres was at bedside. We attempted Epi push, epi drip and calcium chloride push to bring pressures up. At approximately 1145 patient went into PEA. At 1210 patient in asystole. Family has been notified. Son, Robbie, has just now called back with [facility]. I will call [facility].
== END 2019-12-02 12:10 | disposition expired | DRG 870 ==
LOC: EDH 17:14 → EDHIP 20:28 → 3BH 21:55 → 2AH 11-10 14:41 → 2BH 11-22 04:23
PROVIDERS: ADMIT Internal Medicine; ATTEND Internal Medicine
PROC: 0W9B3ZZ Drainage of Left Pleural Cavity, Percutaneous Approach (ICD-10-PCS; 2019-11-10)
PROC: 0W993ZZ Drainage of Right Pleural Cavity, Percutaneous Approach (ICD-10-PCS; 2019-11-10)
PROC: 0B9H8ZX Drainage of Lung Lingula, Via Natural or Artificial Opening Endoscopic, Diagnostic (ICD-10-PCS; 2019-11-10)
PROC: 02HV33Z Insertion of Infusion Device into Superior Vena Cava, Percutaneous Approach (ICD-10-PCS; 2019-11-10)
PROC: 5A09357 Assistance with Respiratory Ventilation, Less than 24 Consecutive Hours, Continuous Positive Airway Pressure (ICD-10-PCS; 2019-11-10)
PROC: 0T9030Z Drainage of Right Kidney with Drainage Device, Percutaneous Approach (ICD-10-PCS; 2019-11-15)
PROC: 0BH17EZ Insertion of Endotracheal Airway into Trachea, Via Natural or Artificial Opening (ICD-10-PCS; 2019-11-22)
PROC: 5A09357 Assistance with Respiratory Ventilation, Less than 24 Consecutive Hours, Continuous Positive Airway Pressure (ICD-10-PCS; 2019-11-22)
PROC: 5A1955Z Respiratory Ventilation, Greater than 96 Consecutive Hours (ICD-10-PCS; principal; 2019-11-24)
PROC: 30233N1 Transfusion of Nonautologous Red Blood Cells into Peripheral Vein, Percutaneous Approach (ICD-10-PCS; 2019-12-02)
DX: A41.9 Sepsis, unspecified organism (principal); J96.01 Acute respiratory failure with hypoxia; J96.02 Acute respiratory failure with hypercapnia; G93.41 Metabolic encephalopathy; R65.21 Severe sepsis with septic shock; J18.9 Pneumonia, unspecified organism; N39.0 Urinary tract infection, site not specified; C78.02 Secondary malignant neoplasm of left lung; C78.01 Secondary malignant neoplasm of right lung; J91.8 Pleural effusion in other conditions classified elsewhere; N13.6 Pyonephrosis; I82.403 Acute embolism and thrombosis of unspecified deep veins of lower extremity, bilateral; E46 Unspecified protein-calorie malnutrition; E87.0 Hyperosmolality and hypernatremia; J98.11 Atelectasis; M62.82 Rhabdomyolysis; Z66 Do not resuscitate; I10 Essential (primary) hypertension; F41.9 Anxiety disorder, unspecified; D64.9 Anemia, unspecified; D69.6 Thrombocytopenia, unspecified; D72.823 Leukemoid reaction; E83.52 Hypercalcemia; F03.90 Unspecified dementia, unspecified severity, without behavioral disturbance, psychotic disturbance, mood disturbance, and anxiety; I07.1 Rheumatic tricuspid insufficiency; I12.9 Hypertensive chronic kidney disease with stage 1 through stage 4 chronic kidney disease, or unspecified chronic kidney disease; I25.10 Atherosclerotic heart disease of native coronary artery without angina pectoris; C80.1 Malignant (primary) neoplasm, unspecified; I48.91 Unspecified atrial fibrillation; J98.09 Other diseases of bronchus, not elsewhere classified; L89.90 Pressure ulcer of unspecified site, unspecified stage; L98.419 Non-pressure chronic ulcer of buttock with unspecified severity; L98.429 Non-pressure chronic ulcer of back with unspecified severity; N18.9 Chronic kidney disease, unspecified; N32.9 Bladder disorder, unspecified; N83.9 Noninflammatory disorder of ovary, fallopian tube and broad ligament, unspecified; R13.12 Dysphagia, oropharyngeal phase; R31.0 Gross hematuria; Y95 Nosocomial condition; Z74.01 Bed confinement status
CPT/HCPCS: 10030; 31500; 31622; 32554; 36415; 36430; 36600; 50432; 71045; 71250; 71275; 74178; 76830; 80048; 80053; 80202; 81001; 82435; 82465; 82550; 82803; 82945; 82947; 82948; 83605; 83615; 83735; 83874; 83880; 84100; 84132; 84145; 84155; 84157; 84295; 84484; 85018; 85025; 85027; 85060; 85378; 85610; 85730; 86304; 86850; 86900; 86901; 86922; 87040; 87071; 87076; 87088; 87116; 87205; 87206; 87641; 87804; 88305; 88312; 89051; 93005; 93306; 93356; 93970; 93971; 94002; 94003; 94640; 94660; 94664; 97039; 99156; 99157; A4344; A6250; C1729; C1751; C1894; G0378; J0171; J0456; J0696; J1644; J1650; J1815; J1885; J1940; J2185; J2250; J2543; J3010; J3370; J3480; J3490; J7030; J7060; J7070; J7120; P9016; P9046; P9047; Q0163; Q9963; Q9967